=== PATIENT | female | born 1940 ===

== ENCOUNTER 2019-03-26 17:17 | Inpatient (IN) | payer MEDICARE, MEDICAID ==
[2019-03-26 17:23] VITALS: BMI 21.2
--- NOTE | 2019-03-26 18:18 | ED PDOC ---
Arrival/HPI - General Historian: [facility] - History of Present Illness Narrative History of Present Illness (Text): 03/26/19 18:12 CC: AMS, multiple ulcers HPI: 78 yo female w/ PMH hypertension, osteorarthritis, cord compression, CAD, GERD, muscle weakness, and MDD sent in by [facility] for evaluation of chronic wounds, moans, and lethargy. Patient baseline mental status unknown and not clearly mentioned in NH documentation. As per documentation, it has been recommended that patient have an amputation for poor healing feet ulcers which was refused. Patient AAOx0 currently and moans incoherent sounds. Information was collected through documentation sent through [facility]. Time/Duration: > week Symptom Onset: Gradual Symptom Course: Worsening Activities at Onset: Rest Context: Sitting <Ernesto Gresham - Last Filed: 03/26/19 19:04> <Jone Shetty - Last Filed: 03/26/19 21:07> <David Romero - Last Filed: 03/26/19 21:14> - General Chief Complaint: Altered Mental Status Time Seen by Provider: 03/26/19 17:46 Past Medical History - Provider Review Nursing Documentation Reviewed: Yes Primary Care Provider: Dalton Meek - Infectious Disease Hx of Infectious Diseases: None - Cardiac Hx Cardiac Disorders: Yes Hx Coronary Artery Disease: Yes Hx Hypertension: Yes - Pulmonary Hx Respiratory Disorders: No - Neurological Hx Neurological Disorder: Yes HX Cerebrovascular Accident: Yes - Renal Hx Renal Disorder: No - Endocrine/Metabolic Hx Endocrine Disorders: No - Hematological/Oncological Hx Blood Disorders: No - Integumentary Hx Dermatological Disorder: Yes (pressure ulcers) - Musculoskeletal/Rheumatological Hx Falls: Yes Hx Osteoarthritis: Yes - Gastrointestinal Hx Gastrointestinal Disorders: Yes Hx Gastroesophageal Reflux: Yes - Psychiatric Hx Depression: Yes Hx Substance Use: No <Ernesto Gresham - Last Filed: 03/26/19 19:04> Family/Social History Family/Social History: Unknown Family HX Smoking Status: Unknown If Ever Smoked Hx Alcohol Use: No Hx Substance Use: No <Ernesto Gresham - Last Filed: 03/26/19 19:04> Allergies/Home Meds <Ernesto Gresham - Last Filed: 03/26/19 19:04> <Jone Shetty - Last Filed: 03/26/19 21:07> <David Romero - Last Filed: 03/26/19 21:14> Allergies/Adverse Reactions: Allergies No Known Allergies Allergy (Verified 03/26/19 17:22) Home Medications: Home Meds Medication Instructions Recorded Confirmed Acetaminophen [Tylenol 325mg tab] 650 mg PO Q4H PRN 03/26/19 03/26/19 Amino Acid/Protein/Vit C/Zinc 30 ml PO BID 03/26/19 03/26/19 [Prosource Ronald Protein Liquid] Ascorbic Acid [Vitamin C] 1,000 mg PO BID 03/26/19 03/26/19 Cyclobenzaprine [Flexeril] 10 mg PO HS 03/26/19 03/26/19 Furosemide [Lasix] 20 mg PO DAILY 03/26/19 03/26/19 Losartan [Cozaar] 50 mg PO DAILY 03/26/19 03/26/19 Mirtazapine [Remeron] 15 mg PO HS 03/26/19 03/26/19 Nutritional Supplement [Ensure] 1 bottle PO BID 03/26/19 03/26/19 RX: Ammonium Lactate 1 applic TOP DAILY 03/26/19 03/26/19 [Nicky-Hydrolac] RX: Aspirin [Ecotrin] 81 mg PO DAILY 03/26/19 03/26/19 RX: Baclofen [Lioresal] 10 mg PO Q12H 03/26/19 03/26/19 RX: Banana Flakes/Tos [Banatrol 1 packet PO BID 03/26/19 03/26/19 Plus Powder Packet] RX: Ferrous Sulfate [Feosol] 325 mg PO BID 03/26/19 03/26/19 RX: Ibuprofen [Motrin Tab] 400 mg PO Q6H PRN 03/26/19 03/26/19 RX: traMADol [Ultram] 50 mg PO Q6H PRN 03/26/19 03/26/19 Ubidecarenone [Coq10] 50 mg PO DAILY 03/26/19 03/26/19 Review of Systems - Review of Systems Systems not reviewed;Unavailable: Altered Mental Status <Ernesto Gresham - Last Filed: 03/26/19 19:04> Physical Exam Vital Signs Reviewed: No - Systems Exam Head: Present: Atraumatic, Normocephalic. No: Tenderness, Contusion, Swelling, Ecchymosis Extroacular Muscles: Present: EOMI. No: Gaze Palsy Conjunctiva: Present: Normal Respiratory/Chest: Present: Clear to Auscultation, Good Air Exchange. No: Respiratory Distress, Accessory Muscle Use Cardiovascular: Present: Regular Rate and Rhythm, Normal S1, S2. No: Murmurs, Irregular Rhythm Abdomen: Present: Normal Bowel Sounds. No: Tenderness, Distention, Peritoneal Signs Upper Extremity: Present: Normal Inspection. No: Cyanosis, Edema Lower Extremity: Present: Other (right foot ulcer with dressing in place). No: Edema, CALF TENDERNESS, Cyanosis Skin: Present: Warm (multiple skin ulcers: 1 present on posterior thorax with wound vac, multiple sacral ulcers measuring different sizes (4x4 cm in sacrum, 2 x 2 cm open ulcer above anus, 2x2 cm on medial thigh)), Normal Color, Other Psychiatric: Present: Alert, Oriented x 3, Normal Insight, Normal Concentration <Ernesto Gresham - Last Filed: 03/26/19 19:04> Vital Signs Temp Pulse Resp BP Pulse Ox 03/26/19 20:17 66 18 103/74 100 03/26/19 17:30 98.1 F 65 17 122/71 100 <David Romero - Last Filed: 03/26/19 21:14> Medical Decision Making ED Course and Treatment: 03/26/19 18:47 Impression Plan -CBC/CMP -Mag/Phos -EKG -VBG Prior Visits no prior visits Progress Notes Pending Callback from Dr. Meek ([id number]) 03/26/19 18:49 03/26/19 19:04 <Ernesto Gresham - Last Filed: 03/26/19 19:04> ED Course and Treatment: 03/26/19 19:58 EKG: NSR, low voltage 03/26/19 21:[address] Meek service Pt seen, examined, assessment and plan discussed with Dr Nick Shetty PGY1 <Jone Shetty - Last Filed: 03/26/19 21:07> ED Course and Treatment: 03/26/19 20:52 Labs reviewed with leukocytosis of 27, thrombocytosis of 1,000 and hyperkalemia of 5.5. Spoke to Dr. Meek(PCP) who requests patient to be evaluated by ICU team. 03/26/19 21:[address] Bloom(house staff) who states patient may go to telemetry floor. - Lab Interpretations Lab Results: pO2 39 mm/Hg (30-55) 03/26/19 19:30 VBG pH 7.41 (7.32-7.43) 03/26/19 19:30 VBG pCO2 37.0 (40-60) L 03/26/19 19:30 VBG HCO3 23.5 mmol/l (21-28) 03/26/19 19:30 VBG Total CO2 24.6 mmol.L (22-28) 03/26/19 19:30 VBG O2 Sat (Calc) 74.9 % (40-65) H 03/26/19 19:30 VBG Base Excess -0.8 mmol/L (0.0-2.0) L 03/26/19 19:30 VBG Potassium 7.0 mmol/L (3.6-5.2) H* 03/26/19 19:30 Sodium 129.0 mmol/L (132-148) L 03/26/19 19:30 Chloride 98.0 mmol/L (98-107) 03/26/19 19:30 Glucose 89 mg/dl (65-105) 03/26/19 19:30 Lactate 2.3 mmol/L (0.7-2.1) H 03/26/19 19:30 FiO2 21.0 % 03/26/19 19:30 Crit Value Called To Johanna hernadez rn 03/26/19 19:30 Crit Value Called By Martha 03/26/19 19:30 Blood Gas Notified Time 195403/26/19 19:30 Total Bilirubin 1.0 mg/dL (0.2-1.3) 03/26/19 19:30 AST 76 U/L (14-36) H 03/26/19 19:30 ALT 20 U/L (7-56) 03/26/19 19:30 Alkaline Phosphatase 142 U/L (38-126) H 03/26/19 19:30 Total Protein 7.4 g/dL (5.8-8.3) 03/26/19 19:30 Albumin 3.3 g/dL (3.0-4.8) 03/26/19 19:30 Globulin 4.1 gm/dL 03/26/19 19:30 Albumin/Globulin Ratio 0.8 (1.1-1.8) L 03/26/19 19:30 03/26/19 19:30 03/26/19 19:30 Lab Results 03/26/19 19:30: pO2 39, VBG pH 7.41, VBG pCO2 37.0 L, VBG HCO3 23.5, VBG Total CO2 24.6, VBG O2 Sat (Calc) 74.9 H, VBG Base Excess -0.8 L, VBG Potassium 7.0 H* , Sodium 129.0 L, Chloride 98.0, Glucose 89, Lactate 2.3 H, FiO2 21.0, Crit Value Called To Johanna hernadez rn, Crit Value Called By Martha, Blood Gas Notified Time 1954, Venous Blood Potassium 7.0 H* 03/26/19 19:30: Sodium 135, Chloride 95 L, Potassium 5.5 H, Carbon Dioxide 24, Anion Gap 22 H, BUN 65 H, Creatinine 2.1 H, Est GFR ( Amer) 27, Est GFR (Non-Af Amer) 23, Random Glucose 74, Calcium 9.1, Phosphorus 5.5 H, Magnesium 2.4 H, Total Bilirubin 1.0, AST 76 H, ALT 20, Alkaline Phosphatase 142 H, Total Protein 7.4, Albumin 3.3, Globulin 4.1, Albumin/Globulin Ratio 0.8 L 03/26/19 19:30: WBC 27.0 H*, RBC 3.68, Hgb 9.0 L, Hct 28.9 L, MCV 78.5 L, MCH 24.5 L, MCHC 31.1, RDW 16.3 H, Plt Count 1039 H*, MPV 8.7, Neut % (Auto) 91.9 H, Lymph % (Auto) 4.1 L, [place] % (Auto) 3.9, Eos % (Auto) 0.0 L, Baso % (Auto) 0.1, Lymph # (Auto) 1.1 L, [place] # (Auto) 1.1 H, Eos # (Auto) 0.0, Baso # (Auto) 0.02, Absolute Neuts (auto) 24.85 H, Neutrophils % (Manual) 91 H, Lymphocytes % (Manual) 5 L, Monocytes % (Manual) 4, Platelet Evaluation High 03/26/19 17:59: POC Glucose (mg/dL) 128 H I have reviewed the lab results: Yes - Medication Orders Current Medication Orders: Sodium Chloride (Sodium Chloride 0.9%) 1,000 mls @ 999 mls/hr IV .Q1H1M STA Stop: 03/26/19 21:15 Vancomycin HCl (Vancomycin 1gm) 1 gm in 250 mls @ 167 mls/hr IVPB STAT STA; Protocol Stop: 03/26/19 21:45 Discontinued Medications Albuterol Sulfate (Albuterol 0.083% Inhal Janis (2.5 Mg/3 Ml) Ud) 2.5 mg INH STAT STA Stop: 03/26/19 20:47 Dextrose (Dextrose 50% Inj) 50 ml IVP STAT STA Stop: 03/26/19 20:48 Piperacillin Sod/Tazobactam Sod (Zosyn 4.5 Gm In Ns 100ml) 4.5 gm in 100 mls @ 200 mls/hr IVPB STAT STA; Protocol Stop: 03/26/19 20:45 Insulin Human Regular (Humulin R) 10 units IV STAT STA Stop: 03/26/19 20:47 Sodium Bicarbonate (Sodium Bicarbonate 8.4% (50 Meq) Syringe) 50 meq IVP ONCE ONE Stop: 03/26/19 20:48 Sodium Polystyrene Sulfonate (Kayexalate) 15 gm PO ONCE ONE Stop: 03/26/19 20:48 <David Romero - Last Filed: 03/26/19 21:14> Disposition/Present on Arrival - Present on Arrival History of DVT/PE: No History of Uncontrolled Diabetes: No Urinary Catheter: No History of Decub. Ulcer: No History Surgical Site Infection Following: None <Ernesto Gresham - Last Filed: 03/26/19 19:04> - Present on Arrival Any Indicators Present on Arrival: No History of DVT/PE: No History of Uncontrolled Diabetes: No Urinary Catheter: No History of Decub. Ulcer: No - Disposition Have Diagnosis and Disposition been Completed?: Yes Disposition Time: 21:07 <Jone Shetty - Last Filed: 03/26/19 21:07> <David Romero - Last Filed: 03/26/19 21:14> - Disposition Diagnosis: Sepsis Patient Problems: Current Active Problems Problem Status Onset Sepsis Acute Condition: FAIR
[2019-03-26 19:49] LABS: BASO # 0.02 K/mm3 (0.0-2.0); BASO % 0.1 % (0.0-3.0); LYMPH # 1.1 (1.2-3.4); LYMPH % 4.1 % (22.0-35.0); MEAN CELL VOLUME 78.5 fl (80.0-105.0); MEAN CORPUSCULAR HEMOGLOBIN 24.5 pg (25.0-35.0); MEAN CORPUSCULAR HGB CONC 31.1 g/dl (31.0-37.0); MEAN PLATELET VOLUME 8.7 fl (7.0-11.0); MONO # 1.1 (0.1-0.6); MONO % 3.9 % (1.0-6.0); RBC 3.68 10^6/uL (3.5-6.1); RED CELL DISTRIBUTION WIDTH 16.3 % (11.5-14.5)
[2019-03-26 19:55] LABS: PLATELET COUNT 1039 10^3/uL (120.0-450.0)
[2019-03-26 19:59] LABS: VENOUS BLOOD GAS BASE EXCESS -0.8 mmol/L (0.0-2.0); VENOUS BLOOD GAS PO2 39 mm/Hg (30-55); VENOUS BLOOD PH 7.41 (7.32-7.43)
[2019-03-26 20:05] LABS: ALB/GLOB RATIO 0.8 (1.1-1.8); ALBUMIN 3.3 g/dL (3.0-4.8); CALCIUM 9.1 mg/dL (8.4-10.5)
[2019-03-26] MEDS ORDERED: Sodium Chloride 0.9% 1,000 ML IV STA ×2 (20:15→21:35)
[2019-03-26] MEDS ORDERED: Vancomycin 1gm in NS 250ml 1 GM/250 ML BAG IVPB STA (20:16)
[2019-03-26] MEDS ORDERED: Piperacill/Tazo 4.5gm in NS 4.5 GM/100 ML BAG IVPB STA (20:16)
[2019-03-26 20:24] LABS: LYMPHOCYTE 5 % (22.0-35.0); NEUTROPHIL 91 % (50.0-70.0)
[2019-03-26 20:25] LABS: MONOCYTE 4 % (1.0-6.0); PLATELET ESTIMATE HIGH (NORMAL)
[2019-03-26] MEDS ORDERED: Albuterol 0.083% Inhal Sol (2.5 mg/3 mL) UD INH STA (20:46)
[2019-03-26] MEDS ORDERED: Insulin Regular 1 UNITS/0.01 ML ML IV STA (20:46)
[2019-03-26] MEDS ORDERED: Sodium Bicarbonate (8.4%) 50 Meq Syringe IVP ONE ×2 (20:47→21:47)
[2019-03-26] MEDS ORDERED: Dextrose 50% SYRINGE Inj (50 ml) IVP STA (20:47)
--- NOTE | 2019-03-26 21:35 | CP.PCM.CON ---
History of Present Illness - History of Present Illness History of Present Illness: SURGERY CONSULT FOR DR. MELCHOR Reason: Mid back abscess, multiple ulcers 78F presents to the ED after being sent here by Dr. Meek. Patient currently has altered mental status, she is from a nursing facility and has nobody bedside to discuss patient condition. Patent came with a chart which was reviewed. She has a history of hypertension, coronary artery disease, GERD, and MDD. Patient has multiple ulcers including in the left lateral malleolus, the sacral region, the lower back, and mid back abscess currently draining purulent material. Past Patient History - Infectious Disease Hx of Infectious Diseases: None - Past Social History Smoking Status: Unknown If Ever Smoked - CARDIAC Hx Cardiac Disorders: Yes Hx Hypertension: Yes - PULMONARY Hx Respiratory Disorders: No - NEUROLOGICAL Hx Neurological Disorder: Yes HX Cerebrovascular Accident: Yes - RENAL Hx Chronic Kidney Disease: No - ENDOCRINE/METABOLIC Hx Endocrine Disorders: No - HEMATOLOGICAL/ONCOLOGICAL Hx Blood Disorders: No - INTEGUMENTARY Hx Dermatological Problems: Yes (pressure ulcers) - MUSCULOSKELETAL/RHEUMATOLOGICAL Hx Falls: Yes Hx Osteoarthritis: Yes - GASTROINTESTINAL Hx Gastrointestinal Disorders: Yes Hx Gastroesophageal Reflux: Yes - PSYCHIATRIC Hx Depression: Yes Hx Substance Use: No Meds Allergies/Adverse Reactions: Allergies Allergy/AdvReac Type Severity Reaction Status Date / Time No Known Allergies Allergy Verified 03/26/19 17:22 - Medications Medications: Current Medications Vancomycin HCl (Vancomycin 1gm) 1 gm in 250 mls @ 167 mls/hr IVPB STAT STA; Protocol Stop: 03/26/19 21:45 Physical Exam - Constitutional Appears: Older Than Stated Age, Confused, Chronically Ill - ENT Exam ENT Exam: Mucous Membranes Dry - Respiratory Exam Respiratory Exam: NORMAL BREATHING PATTERN - Cardiovascular Exam Cardiovascular Exam: REGULAR RHYTHM, +S1, +S2 - GI/Abdominal Exam GI & Abdominal Exam: Soft. absent: Distended, Firm, Guarding, Rebound, Rigid, Tenderness - Extremities Exam Additional comments: left lateral malleolus dry necrotic ulcer sacral decubitus, no necrotic tissue, no drainage Mid back abscess, purulent drainage - Back Exam Additional comments: mid back abscess draining purulent material - Skin Skin Exam: Dry, Normal Color, Warm Results - Vital Signs Recent Vital Signs: Last Vital Signs Temp 98.1 F 03/26/19 17:30 Pulse 66 03/26/19 20:17 Resp 18 03/26/19 20:17 BP 103/74 03/26/19 20:17 Pulse Ox 100 03/26/19 20:17 - Labs Result Diagrams: 03/26/19 19:30 03/26/19 19:30 Labs: Laboratory Results - last 24 hr 03/26/19 03/26/19 03/26/19 17:59 19:30 19:30 WBC 27.0 H* RBC 3.68 Hgb 9.0 L Hct 28.9 L MCV 78.5 L MCH 24.5 L MCHC 31.1 RDW 16.3 H Plt Count 1039 H* MPV 8.7 Neut % (Auto) 91.9 H Lymph % (Auto) 4.1 L [place] % (Auto) 3.9 Eos % (Auto) 0.0 L Baso % (Auto) 0.1 Lymph # (Auto) 1.1 L [place] # (Auto) 1.1 H Eos # (Auto) 0.0 Baso # (Auto) 0.02 Absolute Neuts (auto) 24.85 H Neutrophils % (Manual) 91 H Lymphocytes % (Manual) 5 L Monocytes % (Manual) 4 Platelet Evaluation High pO2 VBG pH VBG pCO2 VBG HCO3 VBG Total CO2 VBG O2 Sat (Calc) VBG Base Excess VBG Potassium Sodium 135 Chloride 95 L Glucose Lactate FiO2 Crit Value Called To Crit Value Called By Blood Gas Notified Time Potassium 5.5 H Carbon Dioxide 24 Anion Gap 22 H BUN 65 H Creatinine 2.1 H Est GFR ( Amer) 27 Est GFR (Non-Af Amer) 23 POC Glucose (mg/dL) 128 H Random Glucose 74 Calcium 9.1 Phosphorus 5.5 H Magnesium 2.4 H Total Bilirubin 1.0 AST 76 H ALT 20 Alkaline Phosphatase 142 H Total Protein 7.4 Albumin 3.3 Globulin 4.1 Albumin/Globulin Ratio 0.8 L Venous Blood Potassium 03/26/19 19:30 WBC RBC Hgb Hct MCV MCH MCHC RDW Plt Count MPV Neut % (Auto) Lymph % (Auto) [place] % (Auto) Eos % (Auto) Baso % (Auto) Lymph # (Auto) [place] # (Auto) Eos # (Auto) Baso # (Auto) Absolute Neuts (auto) Neutrophils % (Manual) Lymphocytes % (Manual) Monocytes % (Manual) Platelet Evaluation pO2 39 VBG pH 7.41 VBG pCO2 37.0 L VBG HCO3 23.5 VBG Total CO2 24.6 VBG O2 Sat (Calc) 74.9 H VBG Base Excess -0.8 L VBG Potassium 7.0 H* Sodium 129.0 L Chloride 98.0 Glucose 89 Lactate 2.3 H FiO2 21.0 Crit Value Called To Johanna hernadez rn Crit Value Called By Martha Blood Gas Notified Time 1954 Potassium Carbon Dioxide Anion Gap BUN Creatinine Est GFR ( Amer) Est GFR (Non-Af Amer) POC Glucose (mg/dL) Random Glucose Calcium Phosphorus Magnesium Total Bilirubin AST ALT Alkaline Phosphatase Total Protein Albumin Globulin Albumin/Globulin Ratio Venous Blood Potassium 7.0 H* Assessment & Plan - Assessment and Plan (Free Text) Assessment: 78F presents to hospital with septic shock, of unknown etiology and multiple wounds Plan: - NPO - Aggressive resuscitation - Broad spectrum antibiotics - Pain control - Martinez-culture - Blood/Urine culture/UA - Chest X-ray - ICU evaluation Further recs will discuss with Dr. Vin Craig, PGY3
--- NOTE | 2019-03-26 21:39 | CP.PCM.CON ---
<RussYanet - Last Filed: 03/26/19 22:38> History of Present Illness - History of Present Illness History of Present Illness: Yanet Solano PGY-2: ICU Consult Note for Dr. Bloom 78 year female with dementia, bed-bound with leg contractures who presented to [facility] for altered mental status. Important to note, patient is from a senior living and has multiple, varying depth pressure ulcers on back, right lateral ankle, gluteal area. In the ED, patient was found to have a WBC of 27,000. ICU was consulted for possible sepsis. Patient is afebrile, hemodynamically her blood pressure is low but she is not tachycardic. She is extremely frail. HPI and ROS are limited secondary to no documentation from NH and patient being unable to speak at baseline. PMH: dementia, bed-bound, multiple pressure ulcers PSH: Unknown Allergies: Denies Social: Unknown PMD: Dr. Meek Review of Systems - Review of Systems All systems: reviewed and no additional remarkable complaints except (as per HPI) Past Patient History - Infectious Disease Hx of Infectious Diseases: None - Past Social History Smoking Status: Unknown If Ever Smoked - CARDIAC Hx Cardiac Disorders: Yes Hx Hypertension: Yes - PULMONARY Hx Respiratory Disorders: No - NEUROLOGICAL Hx Neurological Disorder: Yes HX Cerebrovascular Accident: Yes - RENAL Hx Chronic Kidney Disease: No - ENDOCRINE/METABOLIC Hx Endocrine Disorders: No - HEMATOLOGICAL/ONCOLOGICAL Hx Blood Disorders: No - INTEGUMENTARY Hx Dermatological Problems: Yes (pressure ulcers) - MUSCULOSKELETAL/RHEUMATOLOGICAL Hx Falls: Yes Hx Osteoarthritis: Yes - GASTROINTESTINAL Hx Gastrointestinal Disorders: Yes Hx Gastroesophageal Reflux: Yes - PSYCHIATRIC Hx Depression: Yes Hx Substance Use: No Meds Allergies/Adverse Reactions: Allergies Allergy/AdvReac Type Severity Reaction Status Date / Time No Known Allergies Allergy Verified 03/26/19 17:22 - Medications Medications: Current Medications Vancomycin HCl (Vancomycin 1gm) 1 gm in 250 mls @ 167 mls/hr IVPB STAT STA; Protocol Stop: 03/26/19 21:45 Sodium Chloride (Sodium Chloride 0.9%) 1,000 mls @ 999 mls/hr IV .Q1H1M STA Stop: 03/26/19 22:35 Physical Exam - Constitutional Appears: Non-toxic, No Acute Distress, Older Than Stated Age, Chronically Ill - Head Exam Head Exam: ATRAUMATIC, NORMOCEPHALIC - Eye Exam Eye Exam: EOMI, Normal appearance - ENT Exam ENT Exam: Mucous Membranes Dry - Neck Exam Neck exam: Positive for: Normal Inspection - Respiratory Exam Respiratory Exam: Clear to Auscultation Bilateral, NORMAL BREATHING PATTERN. absent: Accessory Muscle Use - Cardiovascular Exam Cardiovascular Exam: RRR, +S1, +S2 - GI/Abdominal Exam GI & Abdominal Exam: Normal Bowel Sounds, Soft - Back Exam Additional comments: pressure ulcers - Psychiatric Exam Psychiatric exam: Flat Affect - Skin Additional comments: multiple pressure ulcers, with purulent drainage coming out from right mid-back Results - Vital Signs Recent Vital Signs: Last Vital Signs Temp 98.1 F 03/26/19 17:30 Pulse 66 03/26/19 20:17 Resp 18 03/26/19 20:17 BP 103/74 03/26/19 20:17 Pulse Ox 100 03/26/19 20:17 - Labs Result Diagrams: 03/26/19 19:30 03/26/19 19:30 Labs: Laboratory Results - last 24 hr 03/26/19 03/26/19 03/26/19 17:59 19:30 19:30 WBC 27.0 H* RBC 3.68 Hgb 9.0 L Hct 28.9 L MCV 78.5 L MCH 24.5 L MCHC 31.1 RDW 16.3 H Plt Count 1039 H* MPV 8.7 Neut % (Auto) 91.9 H Lymph % (Auto) 4.1 L [place] % (Auto) 3.9 Eos % (Auto) 0.0 L Baso % (Auto) 0.1 Lymph # (Auto) 1.1 L [place] # (Auto) 1.1 H Eos # (Auto) 0.0 Baso # (Auto) 0.02 Absolute Neuts (auto) 24.85 H Neutrophils % (Manual) 91 H Lymphocytes % (Manual) 5 L Monocytes % (Manual) 4 Platelet Evaluation High pO2 VBG pH VBG pCO2 VBG HCO3 VBG Total CO2 VBG O2 Sat (Calc) VBG Base Excess VBG Potassium Sodium 135 Chloride 95 L Glucose Lactate FiO2 Crit Value Called To Crit Value Called By Blood Gas Notified Time Potassium 5.5 H Carbon Dioxide 24 Anion Gap 22 H BUN 65 H Creatinine 2.1 H Est GFR ( Amer) 27 Est GFR (Non-Af Amer) 23 POC Glucose (mg/dL) 128 H Random Glucose 74 Calcium 9.1 Phosphorus 5.5 H Magnesium 2.4 H Total Bilirubin 1.0 AST 76 H ALT 20 Alkaline Phosphatase 142 H Total Protein 7.4 Albumin 3.3 Globulin 4.1 Albumin/Globulin Ratio 0.8 L Venous Blood Potassium 03/26/19 19:30 WBC RBC Hgb Hct MCV MCH MCHC RDW Plt Count MPV Neut % (Auto) Lymph % (Auto) [place] % (Auto) Eos % (Auto) Baso % (Auto) Lymph # (Auto) [place] # (Auto) Eos # (Auto) Baso # (Auto) Absolute Neuts (auto) Neutrophils % (Manual) Lymphocytes % (Manual) Monocytes % (Manual) Platelet Evaluation pO2 39 VBG pH 7.41 VBG pCO2 37.0 L VBG HCO3 23.5 VBG Total CO2 24.6 VBG O2 Sat (Calc) 74.9 H VBG Base Excess -0.8 L VBG Potassium 7.0 H* Sodium 129.0 L Chloride 98.0 Glucose 89 Lactate 2.3 H FiO2 21.0 Crit Value Called To Johanna hernadez rn Crit Value Called By Martha Blood Gas Notified Time 1954 Potassium Carbon Dioxide Anion Gap BUN Creatinine Est GFR ( Amer) Est GFR (Non-Af Amer) POC Glucose (mg/dL) Random Glucose Calcium Phosphorus Magnesium Total Bilirubin AST ALT Alkaline Phosphatase Total Protein Albumin Globulin Albumin/Globulin Ratio Venous Blood Potassium 7.0 H* Assessment & Plan - Assessment and Plan (Free Text) Assessment: 78 year old female with a past medical history of dementia, non-verbal at baseline, pressure ulcers, bed-bound status with leg contracture who was sent to [facility] for altered mental status and found to have a leukocytosis. ICU was consulted for possible sepsis. Patient is not tachycardic and with adequate fluid resuscitation blood pressure should normalize. We will administer 2 L of NS and follow up blood pressure. We recommend broad spectrum antibiotics, blood, urine cultures, wound cultures, chest X-ray, urinalysis, ID and surgical consult at this time. On a subsequent visit, patient MAP was above 60 mmHg after crystalloid fluid resuscitation. No need for ICU admission at this time. Case was reviewed and discussed with attending physician, Dr. Bloom <Bon Bloom - Last Filed: 03/27/19 20:57> Meds - Medications Medications: Current Medications Acetaminophen (Tylenol 325 Mg Supp) 325 mg RC Q6H PRN PRN Reason: Temperature Last Admin: 03/27/19 09:33 Dose: 325 mg Collagenase (Santyl) 0 gm TOP DAILY FRANKLYN Last Admin: 03/27/19 14:31 Dose: 1 applic Sodium Chloride (Sodium Chloride 0.9%) 1,000 mls @ 100 mls/hr IV .Q10H FRANKLYN Last Admin: 03/27/19 14:32 Dose: 100 mls/hr Vancomycin HCl (Vancomycin 500mg In Ns) 500 mg in 100 mls @ 200 mls/hr IVPB Q12 FRANKLYN; Protocol Last Admin: 03/27/19 09:32 Dose: 200 mls/hr Meropenem 250 mg/ Sodium (Chloride) 100 mls @ 100 mls/hr IVPB Q12H FRANKLYN; Protocol Stop: 04/04/19 14:01 Last Admin: 03/27/19 14:31 Dose: 100 mls/hr Lorazepam (Ativan) 0.5 mg IVP Q6H PRN; Protocol PRN Reason: Anxiety Last Admin: 03/27/19 17:19 Dose: 0.5 mg Results - Vital Signs Recent Vital Signs: Last Vital Signs Temp 96.3 F L 03/27/19 16:52 Pulse 77 03/27/19 18:00 Resp 18 03/27/19 16:52 BP 90/58 L 03/27/19 16:52 Pulse Ox 100 03/27/19 16:52 - Labs Result Diagrams: 03/27/19 12:50 03/27/19 08:55 Labs: Laboratory Results - last 24 hr 03/26/19 03/26/19 03/26/19 21:33 22:34 22:58 WBC RBC Hgb Hct MCV MCH MCHC RDW Plt Count MPV Neut % (Auto) Lymph % (Auto) [place] % (Auto) Eos % (Auto) Baso % (Auto) Lymph # (Auto) [place] # (Auto) Eos # (Auto) Baso # (Auto) Absolute Neuts (auto) pCO2 pO2 HCO3 ABG pH ABG Total CO2 ABG O2 Saturation ABG O2 Content ABG Base Excess ABG Hemoglobin ABG Carboxyhemoglobin POC ABG HHb (Measured) ABG Methemoglobin ABG O2 Capacity VBG pH VBG pCO2 VBG HCO3 VBG Total CO2 VBG O2 Sat (Calc) VBG Base Excess VBG Potassium Hgb O2 Saturation Glucose Lactate FiO2 Crit Value Called To Crit Value Called By Blood Gas Notified Time Sodium 134 Potassium 4.8 Chloride 100 Carbon Dioxide 21 Anion Gap 18 BUN 61 H Creatinine 2.0 H Est GFR ( Amer) 29 Est GFR (Non-Af Amer) 24 POC Glucose (mg/dL) 97 Random Glucose 118 H Lactic Acid Uric Acid Calcium 7.9 L Iron TIBC % Saturation Ferritin Total Bilirubin AST ALT Alkaline Phosphatase Ammonia Lactate Dehydrogenase 368 Total Creatine Kinase 428 H CK-MB (CK-2) 5.4 H CK-MB (CK-2) % 1.3 L Troponin I < 0.01 Total Protein Albumin Globulin Albumin/Globulin Ratio Vitamin B12 Venous Blood Potassium Urine Color Urine Appearance Urine pH Ur Specific [place] Urine Protein Urine Glucose (UA) Urine Ketones Urine Blood Urine Nitrate Urine Bilirubin Urine Urobilinogen Ur Leukocyte Esterase Urine RBC Urine WBC Ur Epithelial Cells Urine Bacteria Blood Type Blood Type Confirm Antibody Screen Crossmatch BBK History Checked 03/26/19 03/26/19 03/27/19 23:01 23:05 01:25 WBC RBC Hgb Hct MCV MCH MCHC RDW Plt Count MPV Neut % (Auto) Lymph % (Auto) [place] % (Auto) Eos % (Auto) Baso % (Auto) Lymph # (Auto) [place] # (Auto) Eos # (Auto) Baso # (Auto) Absolute Neuts (auto) pCO2 pO2 109 H HCO3 ABG pH ABG Total CO2 ABG O2 Saturation ABG O2 Content ABG Base Excess ABG Hemoglobin ABG Carboxyhemoglobin POC ABG HHb (Measured) ABG Methemoglobin ABG O2 Capacity VBG pH 7.34 VBG pCO2 41.0 VBG HCO3 22.1 VBG Total CO2 23.4 VBG O2 Sat (Calc) 99.0 H VBG Base Excess -3.5 L VBG Potassium 5.5 H Hgb O2 Saturation Glucose 119 H Lactate 3.5 H FiO2 21.0 Crit Value Called To Elizabeth zimmer Crit Value Called By Atc Blood Gas Notified Time 2310 Sodium 133.0 Potassium Chloride 101.0 Carbon Dioxide Anion Gap BUN Creatinine Est GFR ( Amer) Est GFR (Non-Af Amer) POC Glucose (mg/dL) 93 Random Glucose Lactic Acid Uric Acid Calcium Iron TIBC % Saturation Ferritin Total Bilirubin AST ALT Alkaline Phosphatase Ammonia Lactate Dehydrogenase Total Creatine Kinase CK-MB (CK-2) CK-MB (CK-2) % Troponin I Total Protein Albumin Globulin Albumin/Globulin Ratio Vitamin B12 Venous Blood Potassium 5.5 H Urine Color Yellow Urine Appearance Cloudy Urine pH 6.5 Ur Specific [place] 1.015 Urine Protein 100 H Urine Glucose (UA) Negative Urine Ketones Negative Urine Blood Moderate H Urine Nitrate Negative Urine Bilirubin Negative Urine Urobilinogen 1.0 H Ur Leukocyte Esterase Large H Urine RBC 2 - 5 H Urine WBC 20 - 25 H Ur Epithelial Cells 1 - 3 Urine Bacteria Small Blood Type Blood Type Confirm Antibody Screen Crossmatch BBK History Checked 03/27/19 03/27/19 03/27/19 07:33 08:10 08:10 WBC RBC Hgb Hct MCV MCH MCHC RDW Plt Count MPV Neut % (Auto) Lymph % (Auto) [place] % (Auto) Eos % (Auto) Baso % (Auto) Lymph # (Auto) [place] # (Auto) Eos # (Auto) Baso # (Auto) Absolute Neuts (auto) pCO2 pO2 HCO3 ABG pH ABG Total CO2 ABG O2 Saturation ABG O2 Content ABG Base Excess ABG Hemoglobin ABG Carboxyhemoglobin POC ABG HHb (Measured) ABG Methemoglobin ABG O2 Capacity VBG pH VBG pCO2 VBG HCO3 VBG Total CO2 VBG O2 Sat (Calc) VBG Base Excess VBG Potassium Hgb O2 Saturation Glucose Lactate FiO2 Crit Value Called To Crit Value Called By Blood Gas Notified Time Sodium Potassium Chloride Carbon Dioxide Anion Gap BUN Creatinine Est GFR ( Amer) Est GFR (Non-Af Amer) POC Glucose (mg/dL) 103 Random Glucose Lactic Acid Uric Acid Calcium Iron 13 L TIBC 146 L % Saturation 9 L Ferritin 876.0 Total Bilirubin AST ALT Alkaline Phosphatase Ammonia Lactate Dehydrogenase Total Creatine Kinase CK-MB (CK-2) CK-MB (CK-2) % Troponin I Total Protein Albumin Globulin Albumin/Globulin Ratio Vitamin B12 326 Venous Blood Potassium Urine Color Urine Appearance Urine pH Ur Specific [place] Urine Protein Urine Glucose (UA) Urine Ketones Urine Blood Urine Nitrate Urine Bilirubin Urine Urobilinogen Ur Leukocyte Esterase Urine RBC Urine WBC Ur Epithelial Cells Urine Bacteria Blood Type Blood Type Confirm Antibody Screen Crossmatch BBK History Checked 03/27/19 03/27/19 03/27/19 08:55 11:39 12:15 WBC RBC Hgb Hct MCV MCH MCHC RDW Plt Count MPV Neut % (Auto) Lymph % (Auto) [place] % (Auto) Eos % (Auto) Baso % (Auto) Lymph # (Auto) [place] # (Auto) Eos # (Auto) Baso # (Auto) Absolute Neuts (auto) pCO2 pO2 HCO3 ABG pH ABG Total CO2 ABG O2 Saturation ABG O2 Content ABG Base Excess ABG Hemoglobin ABG Carboxyhemoglobin POC ABG HHb (Measured) ABG Methemoglobin ABG O2 Capacity VBG pH VBG pCO2 VBG HCO3 VBG Total CO2 VBG O2 Sat (Calc) VBG Base Excess VBG Potassium Hgb O2 Saturation Glucose Lactate FiO2 Crit Value Called To Crit Value Called By Blood Gas Notified Time Sodium 141 Potassium 4.0 Chloride 107 Carbon Dioxide 25 Anion Gap 13 BUN 54 H Creatinine 1.9 H Est GFR ( Amer) 31 Est GFR (Non-Af Amer) 25 POC Glucose (mg/dL) 80 Random Glucose 74 Lactic Acid Uric Acid Calcium 8.1 L Iron TIBC % Saturation Ferritin Total Bilirubin 0.6 AST 45 H D ALT 17 Alkaline Phosphatase 129 H Ammonia 15 Lactate Dehydrogenase Total Creatine Kinase CK-MB (CK-2) CK-MB (CK-2) % Troponin I Total Protein 6.1 Albumin 2.6 L Globulin 3.5 Albumin/Globulin Ratio 0.7 L Vitamin B12 Venous Blood Potassium Urine Color Urine Appearance Urine pH Ur Specific [place] Urine Protein Urine Glucose (UA) Urine Ketones Urine Blood Urine Nitrate Urine Bilirubin Urine Urobilinogen Ur Leukocyte Esterase Urine RBC Urine WBC Ur Epithelial Cells Urine Bacteria Blood Type Blood Type Confirm Antibody Screen Crossmatch BBK History Checked 03/27/19 03/27/19 03/27/19 12:15 12:20 12:50 WBC 24.2 H RBC 2.96 L Hgb 7.1 L Hct 23.4 L MCV 79.1 L MCH 24.0 L MCHC 30.3 L RDW 16.3 H Plt Count 693 H MPV 8.0 Neut % (Auto) 93.5 H Lymph % (Auto) 2.7 L [place] % (Auto) 3.8 Eos % (Auto) 0.0 L Baso % (Auto) 0.0 Lymph # (Auto) 0.7 L [place] # (Auto) 0.9 H Eos # (Auto) 0.0 Baso # (Auto) 0.01 Absolute Neuts (auto) 22.67 H pCO2 32 L pO2 146.0 H HCO3 20.8 L ABG pH 7.42 ABG Total CO2 21.8 L ABG O2 Saturation 99.3 H ABG O2 Content 12.3 L ABG Base Excess -3.2 L ABG Hemoglobin 8.8 L ABG Carboxyhemoglobin 1.4 POC ABG HHb (Measured) 0.7 ABG Methemoglobin 1.5 ABG O2 Capacity 12.4 L VBG pH VBG pCO2 VBG HCO3 VBG Total CO2 VBG O2 Sat (Calc) VBG Base Excess VBG Potassium Hgb O2 Saturation 96.4 Glucose Lactate FiO2 28.0 Crit Value Called To Crit Value Called By Blood Gas Notified Time Sodium Potassium Chloride Carbon Dioxide Anion Gap BUN Creatinine Est GFR ( Amer) Est GFR (Non-Af Amer) POC Glucose (mg/dL) Random Glucose Lactic Acid 1.2 Uric Acid Calcium Iron TIBC % Saturation Ferritin Total Bilirubin AST ALT Alkaline Phosphatase Ammonia Lactate Dehydrogenase Total Creatine Kinase CK-MB (CK-2) CK-MB (CK-2) % Troponin I Total Protein Albumin Globulin Albumin/Globulin Ratio Vitamin B12 Venous Blood Potassium Urine Color Urine Appearance Urine pH Ur Specific [place] Urine Protein Urine Glucose (UA) Urine Ketones Urine Blood Urine Nitrate Urine Bilirubin Urine Urobilinogen Ur Leukocyte Esterase Urine RBC Urine WBC Ur Epithelial Cells Urine Bacteria Blood Type Blood Type Confirm Antibody Screen Crossmatch BBK History Checked 03/27/19 03/27/19 03/27/19 12:50 16:09 16:30 WBC RBC Hgb Hct MCV MCH MCHC RDW Plt Count MPV Neut % (Auto) Lymph % (Auto) [place] % (Auto) Eos % (Auto) Baso % (Auto) Lymph # (Auto) [place] # (Auto) Eos # (Auto) Baso # (Auto) Absolute Neuts (auto) pCO2 pO2 HCO3 ABG pH ABG Total CO2 ABG O2 Saturation ABG O2 Content ABG Base Excess ABG Hemoglobin ABG Carboxyhemoglobin POC ABG HHb (Measured) ABG Methemoglobin ABG O2 Capacity VBG pH VBG pCO2 VBG HCO3 VBG Total CO2 VBG O2 Sat (Calc) VBG Base Excess VBG Potassium Hgb O2 Saturation Glucose Lactate FiO2 Crit Value Called To Crit Value Called By Blood Gas Notified Time Sodium Potassium Chloride Carbon Dioxide Anion Gap BUN Creatinine Est GFR ( Amer) Est GFR (Non-Af Amer) POC Glucose (mg/dL) 85 Random Glucose Lactic Acid Uric Acid 7.5 H Calcium Iron TIBC % Saturation Ferritin Total Bilirubin AST ALT Alkaline Phosphatase Ammonia Lactate Dehydrogenase Total Creatine Kinase CK-MB (CK-2) CK-MB (CK-2) % Troponin I Total Protein Albumin Globulin Albumin/Globulin Ratio Vitamin B12 Venous Blood Potassium Urine Color Urine Appearance Urine pH Ur Specific [place] Urine Protein Urine Glucose (UA) Urine Ketones Urine Blood Urine Nitrate Urine Bilirubin Urine Urobilinogen Ur Leukocyte Esterase Urine RBC Urine WBC Ur Epithelial Cells Urine Bacteria Blood Type O POSITIVE Blood Type Confirm Antibody Screen Negative Crossmatch See Detail BBK History Checked No verified bt 03/27/19 17:30 WBC RBC Hgb Hct MCV MCH MCHC RDW Plt Count MPV Neut % (Auto) Lymph % (Auto) [place] % (Auto) Eos % (Auto) Baso % (Auto) Lymph # (Auto) [place] # (Auto) Eos # (Auto) Baso # (Auto) Absolute Neuts (auto) pCO2 pO2 HCO3 ABG pH ABG Total CO2 ABG O2 Saturation ABG O2 Content ABG Base Excess ABG Hemoglobin ABG Carboxyhemoglobin POC ABG HHb (Measured) ABG Methemoglobin ABG O2 Capacity VBG pH VBG pCO2 VBG HCO3 VBG Total CO2 VBG O2 Sat (Calc) VBG Base Excess VBG Potassium Hgb O2 Saturation Glucose Lactate FiO2 Crit Value Called To Crit Value Called By Blood Gas Notified Time Sodium Potassium Chloride Carbon Dioxide Anion Gap BUN Creatinine Est GFR ( Amer) Est GFR (Non-Af Amer) POC Glucose (mg/dL) Random Glucose Lactic Acid Uric Acid Calcium Iron TIBC % Saturation Ferritin Total Bilirubin AST ALT Alkaline Phosphatase Ammonia Lactate Dehydrogenase Total Creatine Kinase CK-MB (CK-2) CK-MB (CK-2) % Troponin I Total Protein Albumin Globulin Albumin/Globulin Ratio Vitamin B12 Venous Blood Potassium Urine Color Urine Appearance Urine pH Ur Specific [place] Urine Protein Urine Glucose (UA) Urine Ketones Urine Blood Urine Nitrate Urine Bilirubin Urine Urobilinogen Ur Leukocyte Esterase Urine RBC Urine WBC Ur Epithelial Cells Urine Bacteria Blood Type Blood Type Confirm O POSITIVE Antibody Screen Crossmatch BBK History Checked Attending/Attestation - Attestation I have personally seen and examined this patient.: Yes I have fully participated in the care of the patient.: Yes I have reviewed all pertinent clinical information: Yes
[2019-03-26] MEDS: Sodium Chloride 0.9% 1,000 ML IV SCH (21:55)
[2019-03-26 22:59] LABS: TROPONIN I < 0.01 ng/mL
[2019-03-26 23:05] LABS: CK MB% 1.3 % (2.5-3.0); CK-MB 5.4 ng/mL (0.0-3.6)
[2019-03-26 23:08] LABS: CALCIUM 7.9 mg/dL (8.4-10.5)
[2019-03-26] MEDS: Vancomycin 500mg in NS 500 MG/100 ML BAG IVPB SCH (23:08)
[2019-03-26] MEDS: Piperacillin/Tazobact 2.25gm 2.25 GM/100 ML BAG IVPB SCH (23:09)
[2019-03-26 23:12] LABS: VENOUS BLOOD GAS BASE EXCESS -3.5 mmol/L (0.0-2.0); VENOUS BLOOD GAS PO2 109 mm/Hg (30-55); VENOUS BLOOD PH 7.34 (7.32-7.43)
[2019-03-26 23:28] LABS: PH,URINE 6.5 (4.7-8.0); URINE BILIRUBIN NEGATIVE (NEGATIVE); URINE BLOOD MODERATE (NEGATIVE); URINE GLUCOSE (UA) NEGATIVE (NEGATIVE); URINE LEUKOCYTE ESTERASE LARGE Leu/uL (NEGATIVE); URINE PROTEIN 100 mg/dL (<30 mg/dL)
[2019-03-26 23:32] LABS: URINE APPEARANCE CLOUDY (CLEAR); URINE COLOR YELLOW (YELLOW)
[2019-03-26 23:49] LABS: URINE BACTERIA SMALL /hpf; URINE WBC 20 - 25 /hpf (0-6)
[2019-03-27] MEDS: Piperacillin/Tazobact 2.25gm 2.25 GM/100 ML BAG IVPB SCH (05:57)
--- NOTE | 2019-03-27 08:32 | RAD ---
Date of service: 03/26/2019 HISTORY: sepsis, shock, source COMPARISON: No prior. TECHNIQUE: 1 view obtained. FINDINGS: LUNGS: No active pulmonary disease. PLEURA: No significant pleural effusion identified, no pneumothorax apparent. CARDIOVASCULAR: Aortic calcification Normal cardiac size. No pulmonary vascular congestion. OSSEOUS STRUCTURES: No significant abnormalities. VISUALIZED UPPER ABDOMEN: Normal. OTHER FINDINGS: None. IMPRESSION: No active disease.
[2019-03-27 08:44] LABS: IRON 13 ug/dL (45-180)
--- NOTE | 2019-03-27 08:47 | CP.PCM.PN ---
Subjective - Date & Time of Evaluation Date of Evaluation: 03/27/19 Time of Evaluation: 06:50 - Subjective Subjective: General Surgery Pt Seen and Examined. Pt not oriented. Cries out when moved but otherwise no response to questions. Warming blanket on. Was hypothermic overnight. Objective - Vital Signs/Intake and Output Vital Signs (last 24 hours): Temp Pulse Resp BP Pulse Ox 94.3 F L 124 H 18 109/73 100 03/27/19 00:50 03/27/19 06:00 03/27/19 00:50 03/27/19 00:50 03/27/19 00:50 Intake and Output: 03/27/19 03/27/19 06:59 18:59 Intake Total 0 Output Total 700 Balance -700 - Medications Medications: Current Medications Sodium Chloride (Sodium Chloride 0.9%) 1,000 mls @ 100 mls/hr IV .Q10H FR[place]N Last Admin: 03/26/19 21:55 Dose: 100 mls/hr Vancomycin HCl (Vancomycin 500mg In Ns) 500 mg in 100 mls @ 200 mls/hr IVPB Q12 FR[place]LYN; Protocol Last Admin: 03/26/19 23:08 Dose: Not Given Meropenem 250 mg/ Sodium (Chloride) 100 mls @ 100 mls/hr IVPB Q12H FRANKLYN; Protocol Stop: 04/04/19 14:01 - Labs Labs: 03/26/19 19:30 03/26/19 22:58 - Constitutional Appears: Non-toxic, No Acute Distress - Head Exam Head Exam: ATRAUMATIC, NORMOCEPHALIC - Respiratory Exam Respiratory Exam: NORMAL BREATHING PATTERN. absent: Respiratory Distress - GI/Abdominal Exam GI & Abdominal Exam: Soft. absent: Distended, Tenderness - Extremities Exam Extremities Exam: absent: Calf Tenderness Additional comments: Clean based ulcer on L Lateral malleolus - Neurological Exam Neurological Exam: Altered - Skin Skin Exam: Dry, Warm Additional comments: Decubitous ulcer on L upper back with fibrinous exudate Assessment and Plan - Assessment and Plan (Free Text) Assessment: 78F with upper back ulcer and L lateral malleolar ulcer Plan: - Continuous antibiotics - Pain control PRN - F/U cultures - Santyl to wounds QD - Heel protectors - Air mattress - Reposition Q2H D/W Dr. Vin Harper PGY4
[2019-03-27 08:53] LABS: % IRON SATURATION 9 % (20-55); TOTAL IRON BINDING CAPACITY 146 ug/dL (265-497)
[2019-03-27 09:15] LABS: ALB/GLOB RATIO 0.7 (1.1-1.8); ALBUMIN 2.6 g/dL (3.0-4.8); CALCIUM 8.1 mg/dL (8.4-10.5)
[2019-03-27] MEDS: Vancomycin 500mg in NS 500 MG/100 ML BAG IVPB SCH ×2 (09:32→22:04)
--- NOTE | 2019-03-27 10:42 | CARD ---
APPROVED REPORT Date of service: 03/26/2019 EKG Measurement Heart [id number] <Conclusion> Normal sinus rhythm Low voltage QRS Borderline ECG
[2019-03-27 12:33] LABS: ARTERIAL BLOOD GAS HCO3 20.8 mmol/L (21-28); ARTERIAL BLOOD GAS HEMOGLOBIN 8.8 g/dL (11.7-17.4); ARTERIAL BLOOD GAS O2 CAPACITY 12.4 mL/dl (16-24); ARTERIAL BLOOD GAS O2 CONTENT 12.3 ML/dl (15-23); ARTERIAL BLOOD GAS O2 SAT 99.3 % (95-98); ARTERIAL BLOOD GAS PCO2 32 mm/Hg (35-45); ARTERIAL BLOOD GAS PH 7.42 (7.35-7.45); ARTERIAL BLOOD GAS TCO2 21.8 mmol.L (22-28)
[2019-03-27 13:17] LABS: BASO # 0.01 K/mm3 (0.0-2.0); HEMOGLOBIN 7.1 g/dL (12.0-16.0); LYMPH # 0.7 (1.2-3.4); LYMPH % 2.7 % (22.0-35.0); MEAN CELL VOLUME 79.1 fl (80.0-105.0); MEAN CORPUSCULAR HGB CONC 30.3 g/dl (31.0-37.0); MONO # 0.9 (0.1-0.6); MONO % 3.8 % (1.0-6.0); RBC 2.96 10^6/uL (3.5-6.1); RED CELL DISTRIBUTION WIDTH 16.3 % (11.5-14.5); WHITE BLOOD COUNT 24.2 10^3/uL (4.5-11.0)
[2019-03-27] MEDS ORDERED: Piperacillin/Tazobact 3.375 gm 100 ML IVPB SCH (14:00)
--- NOTE | 2019-03-27 14:20 | CT ---
Date of service: 03/27/2019 PROCEDURE: CT HEAD WITHOUT CONTRAST. HISTORY: AMS COMPARISON: None available. TECHNIQUE: Axial computed tomography images were obtained through the head/brain without intravenous contrast. Radiation dose: Total exam DLP = 1038.03 mGy-cm. This CT exam was performed using one or more of the following dose reduction techniques: Automated exposure control, adjustment of the mA and/or kV according to patient size, and/or use of iterative reconstruction technique. FINDINGS: HEMORRHAGE: No intracranial hemorrhage. BRAIN: No mass effect or edema. Chronic microvascular changes and mild atrophy VENTRICLES: Unremarkable. No hydrocephalus. CALVARIUM: Unremarkable. PARANASAL SINUSES: Unremarkable as visualized. No significant inflammatory changes. MASTOID AIR CELLS: Unremarkable as visualized. No inflammatory changes. OTHER FINDINGS: None. IMPRESSION: No acute intracranial findings
[2019-03-27] MEDS: Collagenase 250 Units/gm Ointment(30 gm) TOP SCH (14:31)
[2019-03-27] MEDS: Sodium Chloride 0.9% 1,000 ML IV SCH (14:32)
--- NOTE | 2019-03-27 14:34 | CP.PCM.PCO ---
Additional Comments - Additional Comments Additional Comments: continue IV antibiotics as per ID, Hgb 7.1 patient for transfusion, repeat labs in am
--- NOTE | 2019-03-27 15:03 | US ---
Date of service: 03/27/2019 PROCEDURE: Ultrasound of the Kidneys HISTORY: JOSÉ MANUEL COMPARISON: None available. TECHNIQUE: Sonogram of the kidneys. FINDINGS: RIGHT KIDNEY: Measures: 4.4 x 4.8 x 9.9 cm. Normal in size, contour and echogenicity. No stone, solid mass lesion or hydronephrosis visualized. LEFT KIDNEY: Measures: 3.6 x 4.3 x 9.5 cm. Normal in size, contour and echogenicity. No stone, solid mass lesion or hydronephrosis visualized. OTHER FINDINGS: None. IMPRESSION: Unremarkable renal sonogram.
--- NOTE | 2019-03-27 16:28 | CON ---
DATE: 03/27/2019 HEMATOLOGY CONSULTATION HISTORY OF PRESENT ILLNESS: This is an 78-year-old woman with several hematological problems. The patient is demented. She really cannot give me an answer or speak to me. She comes in here with decubitus ulcers. PHYSICAL EXAMINATION: SKIN: No petechiae. No bruises. HEENT: Anicteric. NODES: Nonpalpable in the axillary, cervical, supraclavicular or inguinal regions. LUNGS: Clear. The patient is . ABDOMEN: Shows no liver, no spleen, no tenderness, no rebound. BREAST: Shows no obvious mass. CENTRAL NERVOUS SYSTEM: Demented. Plantars are downgoing bilaterally. LABORATORY DATA: 1. White count of 27,000 with 85% neutrophils. 2. The patient has hemoglobin of 9 with an MCV of 78 and BUN of 61 with a creatinine of 2, fluid hydration with platelet count of million and 39,000. ASSESSMENT AND PLAN: 1. In terms of white count of 27,000; it is probably due to sepsis; however, I am going to order a genetic test for BCR-ABL mutation to rule out chronic myelogenous leukemia. 2. The patient has a platelet count of over a million. A. This is possibly secondary to sepsis. B. Secondary to iron deficiency. C. Genetic mutation of the JAK2. So, I have ordered iron levels and I have also ordered the JAK2 mutation. 3. The patient has hemoglobin of 9, MCV of 78 with a BUN of 62. My feeling is that this will go down the hemoglobin as she gets hydrated. I have ordered iron levels; and because the MCV is low, suggested iron deficiency as well as with the platelet count of million, so I am ordering IV iron that can be repeated as well. So, we are treating for iron deficiency. We are treating for sepsis; however, looking at the background for any mutations for either chronic myelogenous leukemia or an essential thrombocytosis. Srinath Solano MD
--- NOTE | 2019-03-27 16:45 | HP ---
DATE OF EXAM: 03/27/2019 HISTORY OF PRESENT ILLNESS: She was debrided in the [facility] a day ago by surgery for multiple ulcers. She is bed bound. She is contracted. She is get ulcers on her legs and on her back. She went down hill. She is screaming out, lethargic and states 2-3 weeks ago she was hold the conversation. She is an 78-year-old female from [facility] who is now very lethargic and screaming out, very dry. PAST MEDICAL HISTORY: Hypertension, osteoarthritis, compression, CAD, GERD, muscle weakness, depression, chronic wounds, lethargy now, intractable for extremities, bed bound. She was eating about a week or 2 ago. She has CVA, history of falls, gastroesophageal reflux and depression. FAMILY HISTORY: Unknown family history. ALLERGIES: SHE IS ALLERGIES TO NO KNOWN DRUG ALLERGIES. MEDICATIONS: She is on Tylenol, vitamins, multivitamins, Flexeril, Lasix, Cozaar, Remeron, Ensure, ammonium lactate, Ecotrin, Lioresal, banana flakes, iron, Ultram and CoQ10. REVIEW OF SYSTEMS: Unable to be do it because of her altered mental status so she just screaming out at this time. PHYSICAL EXAMINATION: VITAL SIGNS: She has a 98.1 temp, 65 pulse, 17 respiratory rate, 122/71 blood pressure and 100% O2 sat. HEENT: Head is atraumatic and normocephalic. Difficult to do extraocular muscles because her eyes are closed. She is off. THROAT: Quite dry. HEART: Regular rate. Normal, S1 and S2. LUNGS: Decreased breath sounds. Very poor inspirations. No wheezes, rhonchi or rales. ABDOMEN: Soft and nontender. Positive bowel sounds. Scaphoid. EXTREMITIES: All four extremities are contracted. There are right foot dressings. Upper back is a large wound. Wound vac, multiple sacral ulcers. Surgery is being following her. She is alert to nothing right now. She is yelling and you cannot wake her upto be coherent. She has multiple test done. LABORATORY DATA: Chest x-ray is no active disease. She has a urine which shows large leukocytes, small bacteria. Sodium 134, potassium 4.8, BUN is 61 and creatinine 2 very dry, GFR is 24, last sugar is 103, calcium is 7.9, lactate was 2.3, then it bumped up to 3.5. White count is 27,000, hemoglobin is 9, hematocrit 20.9 and platelets of 1039. She is here for sepsis, decubitus ulcers, infection, UTI and thrombocytosis. Have consults with hematology, Surgery, Infectious Disease. We will give her IV fluids, IV antibiotics. Check her labs and wound care, oxygen and swallow evaluation. Hopefully she will improve. Dalton Meek DO MTDGarrett
--- NOTE | 2019-03-27 20:24 | CON ---
DATE OF CONSULTATION: 03/27/2019 The patient is seen earlier today in room 368, bed 2. CHIEF COMPLAINT: Multiple decubitus ulcer times several days and weeks. HISTORY OF PRESENT ILLNESS: This is an 78-year-old female from a [facility] with dementia, hypertension, cerebrovascular accident, cord compression, coronary artery disease, contracted, had been chronically ill, depression, and the patient does not verbalize. Information is gathered from the nurse. There has been hypothermia reported, shortness of breath and tachycardia reported by nursing staff and multiple wound infections. REVIEW OF SYSTEMS: Reveals a 12-point review of systems performed. PAST MEDICAL HISTORY: Significant for hypertension, dementia, osteoarthritis, cerebrovascular accident, cord compression, CAD, GERD, leg contractions, chronic wound infection, and depression. PAST SURGICAL HISTORY: Noncontributory. ALLERGIES: THE PATIENT HAS NO KNOWN ALLERGIES. MEDICATIONS: Medications at the [facility] reveals the patient to be on losartan, Lasix, tramadol, and aspirin. PHYSICAL EXAMINATION: GENERAL: She is in bed, appearing chronically ill. She appears older than her stated age. VITAL SIGNS: T-max of 99.8, T-min is 94.3, a heart rate of 134, respiratory rate of 20, blood pressure is 94/60. HEENT: Examination of HEENT is unremarkable. NECK: Supple. LUNGS: Have decreased breath sounds. HEART: Normal S1, S2. ABDOMEN: Soft, nontender. SKIN: Examination of the multiple ulcers, decubiti breakdown in the back, in the hip, in the legs, we will resect it. LABORATORY DATA: Laboratory examination reveals a white count of 27,000, hemoglobin of 9, and the platelets of over a million. Chemistries revealed the patient's creatinine is 1.9, it was 2.1 on admission, and an alk phos of 129. Urinalysis is noted, 20-25 wbc's with small bacteria. Microbiology reveals the sacral cultures are pending, blood cultures and urine cultures are pending. The patient also had a chest x-ray, which was no active lung disease, and a CAT scan of the head, which was no active hemorrhage. ASSESSMENT AND PLAN: An 78-year-old female, [facility] patient with; 1. Severe sepsis, multiple infected ulcers with urine possibly a source versus gastrointestinal with acute kidney injury with creatinine of 2.1. We will treat the patient with intermittent vancomycin and meropenem. I also recommend a CAT scan of the abdomen and pelvis to rule out intra-abdominal pathology, vancomycin and meropenem pending pancultures, and CAT scan of the abdomen and pelvis results. We will follow with you. Overall prognosis is quite poor for this patient. Carlton Lopez MD
[2019-03-28 07:39] LABS: MEAN CORPUSCULAR HEMOGLOBIN 24.5 pg (25.0-35.0); MEAN PLATELET VOLUME 8.1 fl (7.0-11.0); RBC 3.96 10^6/uL (3.5-6.1); RED CELL DISTRIBUTION WIDTH 17.1 % (11.5-14.5); WHITE BLOOD COUNT 18.7 10^3/uL (4.5-11.0)
[2019-03-28 07:42] LABS: HEMOGLOBIN 9.7 g/dL (12.0-16.0)
[2019-03-28 07:59] LABS: ALB/GLOB RATIO 0.7 (1.1-1.8); ALBUMIN 2.5 g/dL (3.0-4.8)
[2019-03-28] MEDS: Dextrose 5%/0.45% NS 1,000 ML IV SCH (08:02)
--- NOTE | 2019-03-28 09:48 | CP.PCM.CON ---
<Colten Rai - Last Filed: 03/28/19 11:32> History of Present Illness - History of Present Illness History of Present Illness: PGY6 GI Fellow Consult Note Patient is an 78yo female with PMHx significant for dementia, bedbound with multiple decubitus ulcers, recommended to undergo amputation due to nonhealing foot wounds (refused by family), HTN, OA, CAD and GERD who was sent to the hospital for wound evaluation and increased lethargy. The patient does not provide history and only moans/screams even just moving the patient's bed sheet. Our service has been consult for anemia. The patient has not had any episodes of overt bleeding at the residential or since admission with the exception of bleeding after surgical debridement of wounds at [facility]. She had a loose brown BM yesterday evening. She was found to be rather volume depleted on admission, treated with IVF and a drop in HGB from 9 to 7.1 was noted with accompanying drops in all cell lines and hematocrit as to be expected with resuscitation. There is concern for infection of known wounds and patient has been placed on broad spectrum antibiotics. 12 system ROS cannot be completed given clinical condition and dementia PMHx: See HPI PSHx: Unable to assess FHx: Unable to assess Social: No known tobacco, EtOH or illicit drug use Endo: No prior endoscopic evaluations documented Past Patient History - Infectious Disease Hx of Infectious Diseases: None - Past Social History Smoking Status: Unknown If Ever Smoked - CARDIAC Hx Cardiac Disorders: Yes Hx Hypertension: Yes - PULMONARY Hx Respiratory Disorders: No - NEUROLOGICAL Hx Neurological Disorder: Yes HX Cerebrovascular Accident: Yes - RENAL Hx Chronic Kidney Disease: No - ENDOCRINE/METABOLIC Hx Endocrine Disorders: No - HEMATOLOGICAL/ONCOLOGICAL Hx Blood Disorders: No - INTEGUMENTARY Hx Dermatological Problems: Yes (pressure ulcers) - MUSCULOSKELETAL/RHEUMATOLOGICAL Hx Falls: Yes Hx Osteoarthritis: Yes - GASTROINTESTINAL Hx Gastrointestinal Disorders: Yes Hx Gastroesophageal Reflux: Yes - PSYCHIATRIC Hx Depression: Yes Hx Substance Use: No Meds Allergies/Adverse Reactions: Allergies Allergy/AdvReac Type Severity Reaction Status Date / Time No Known Allergies Allergy Verified 03/26/19 17:22 - Medications Medications: Current Medications Acetaminophen (Tylenol 325 Mg Supp) 325 mg RC Q6H PRN PRN Reason: Temperature Last Admin: 03/27/19 09:33 Dose: 325 mg Collagenase (Santyl) 0 gm TOP DAILY FRANKLYN Last Admin: 03/27/19 14:31 Dose: 1 applic Vancomycin HCl (Vancomycin 500mg In Ns) 500 mg in 100 mls @ 200 mls/hr IVPB Q12 FRANKLYN; Protocol Last Admin: 03/27/19 22:04 Dose: 200 mls/hr Meropenem 250 mg/ Sodium (Chloride) 100 mls @ 100 mls/hr IVPB Q12H FRANKLYN; Protocol Stop: 04/04/19 14:01 Last Admin: 03/28/19 06:38 Dose: 100 mls/hr Dextrose/Sodium Chloride (Dextrose 5%/0.45% Ns 1000 Ml) 1,000 mls @ 60 mls/hr IV .[id number] FRANKLYN Last Admin: 03/28/19 08:02 Dose: 60 mls/hr Potassium Chloride (Potassium Chloride 20 Meq/100 Ml) 20 meq in 100 mls @ 50 mls/hr IVPB Q2H FRANKLYN Stop: 03/28/19 12:29 Ketorolac Tromethamine (Toradol) 30 mg IVP Q6H PRN PRN Reason: Pain, moderate (4-7) Last Admin: 03/28/19 08:23 Dose: 30 mg Lorazepam (Ativan) 0.5 mg IVP Q6H PRN; Protocol PRN Reason: Anxiety Last Admin: 03/27/19 17:19 Dose: 0.5 mg Physical Exam - Constitutional Appears: Agitated, Confused, Chronically Ill - Eye Exam Eye Exam: PERRL Additional comments: does not cooperate with exam - ENT Exam ENT Exam: Mucous Membranes Dry - Respiratory Exam Respiratory Exam: Decreased Breath Sounds. absent: Clear to Auscultation Bilateral, Rales, Rhonchi, Wheezes - Cardiovascular Exam Cardiovascular Exam: RRR, +S1, +S2 - GI/Abdominal Exam GI & Abdominal Exam: Normal Bowel Sounds, Soft. absent: Distended, Firm, Guarding, Organomegaly, Rigid, Tenderness - Extremities Exam Additional comments: multiple decubitus ulcers - Neurological Exam Neurological exam: Altered - Psychiatric Exam Psychiatric exam: Agitated, Anxious - Skin Skin Exam: Dry Results - Vital Signs Recent Vital Signs: Last Vital Signs Temp 100 F H 03/28/19 08:40 Pulse 113 H 03/28/19 08:40 Resp 20 03/28/19 08:40 BP 105/69 03/28/19 08:40 Pulse Ox 100 03/28/19 08:40 - Labs Result Diagrams: 03/28/19 07:20 03/28/19 07:20 Labs: Laboratory Results - last 24 hr 03/26/19 03/27/19 03/27/19 21:33 08:10 11:39 WBC RBC Hgb Hct MCV MCH MCHC RDW Plt Count MPV Neut % (Auto) Lymph % (Auto) [place] % (Auto) Eos % (Auto) Baso % (Auto) Lymph # (Auto) [place] # (Auto) Eos # (Auto) Baso # (Auto) Absolute Neuts (auto) pCO2 pO2 HCO3 ABG pH ABG Total CO2 ABG O2 Saturation ABG O2 Content ABG Base Excess ABG Hemoglobin ABG Carboxyhemoglobin POC ABG HHb (Measured) ABG Methemoglobin ABG O2 Capacity Hgb O2 Saturation FiO2 Sodium Potassium Chloride Carbon Dioxide Anion Gap BUN Creatinine Est GFR ( Amer) Est GFR (Non-Af Amer) POC Glucose (mg/dL) 97 80 Random Glucose Lactic Acid Uric Acid Calcium Ferritin 876.0 Total Bilirubin AST ALT Alkaline Phosphatase Ammonia Total Protein Albumin Globulin Albumin/Globulin Ratio Vitamin B12 326 Blood Type Blood Type Confirm Antibody Screen Crossmatch BBK History Checked 03/27/19 03/27/19 03/27/19 12:15 12:15 12:20 WBC RBC Hgb Hct MCV MCH MCHC RDW Plt Count MPV Neut % (Auto) Lymph % (Auto) [place] % (Auto) Eos % (Auto) Baso % (Auto) Lymph # (Auto) [place] # (Auto) Eos # (Auto) Baso # (Auto) Absolute Neuts (auto) pCO2 32 L pO2 146.0 H HCO3 20.8 L ABG pH 7.42 ABG Total CO2 21.8 L ABG O2 Saturation 99.3 H ABG O2 Content 12.3 L ABG Base Excess -3.2 L ABG Hemoglobin 8.8 L ABG Carboxyhemoglobin 1.4 POC ABG HHb (Measured) 0.7 ABG Methemoglobin 1.5 ABG O2 Capacity 12.4 L Hgb O2 Saturation 96.4 FiO2 28.0 Sodium Potassium Chloride Carbon Dioxide Anion Gap BUN Creatinine Est GFR ( Amer) Est GFR (Non-Af Amer) POC Glucose (mg/dL) Random Glucose Lactic Acid 1.2 Uric Acid Calcium Ferritin Total Bilirubin AST ALT Alkaline Phosphatase Ammonia 15 Total Protein Albumin Globulin Albumin/Globulin Ratio Vitamin B12 Blood Type Blood Type Confirm Antibody Screen Crossmatch BBK History Checked 03/27/19 03/27/19 03/27/19 12:50 12:50 16:09 WBC 24.2 H RBC 2.96 L Hgb 7.1 L Hct 23.4 L MCV 79.1 L MCH 24.0 L MCHC 30.3 L RDW 16.3 H Plt Count 693 H MPV 8.0 Neut % (Auto) 93.5 H Lymph % (Auto) 2.7 L [place] % (Auto) 3.8 Eos % (Auto) 0.0 L Baso % (Auto) 0.0 Lymph # (Auto) 0.7 L [place] # (Auto) 0.9 H Eos # (Auto) 0.0 Baso # (Auto) 0.01 Absolute Neuts (auto) 22.67 H pCO2 pO2 HCO3 ABG pH ABG Total CO2 ABG O2 Saturation ABG O2 Content ABG Base Excess ABG Hemoglobin ABG Carboxyhemoglobin POC ABG HHb (Measured) ABG Methemoglobin ABG O2 Capacity Hgb O2 Saturation FiO2 Sodium Potassium Chloride Carbon Dioxide Anion Gap BUN Creatinine Est GFR ( Amer) Est GFR (Non-Af Amer) POC Glucose (mg/dL) 85 Random Glucose Lactic Acid Uric Acid 7.5 H Calcium Ferritin Total Bilirubin AST ALT Alkaline Phosphatase Ammonia Total Protein Albumin Globulin Albumin/Globulin Ratio Vitamin B12 Blood Type Blood Type Confirm Antibody Screen Crossmatch BBK History Checked 03/27/19 03/27/19 03/27/19 16:30 17:30 21:40 WBC RBC Hgb Hct MCV MCH MCHC RDW Plt Count MPV Neut % (Auto) Lymph % (Auto) [place] % (Auto) Eos % (Auto) Baso % (Auto) Lymph # (Auto) [place] # (Auto) Eos # (Auto) Baso # (Auto) Absolute Neuts (auto) pCO2 pO2 HCO3 ABG pH ABG Total CO2 ABG O2 Saturation ABG O2 Content ABG Base Excess ABG Hemoglobin ABG Carboxyhemoglobin POC ABG HHb (Measured) ABG Methemoglobin ABG O2 Capacity Hgb O2 Saturation FiO2 Sodium Potassium Chloride Carbon Dioxide Anion Gap BUN Creatinine Est GFR ( Amer) Est GFR (Non-Af Amer) POC Glucose (mg/dL) 91 Random Glucose Lactic Acid Uric Acid Calcium Ferritin Total Bilirubin AST ALT Alkaline Phosphatase Ammonia Total Protein Albumin Globulin Albumin/Globulin Ratio Vitamin B12 Blood Type O POSITIVE Blood Type Confirm O POSITIVE Antibody Screen Negative Crossmatch See Detail BBK History Checked No verified bt 03/28/19 03/28/19 03/28/19 07:20 07:20 07:36 WBC 18.7 H D RBC 3.96 Hgb 9.7 L D Hct 31.3 L MCV 79.0 L MCH 24.5 L MCHC 31.0 RDW 17.1 H Plt Count 669 H MPV 8.1 Neut % (Auto) Lymph % (Auto) [place] % (Auto) Eos % (Auto) Baso % (Auto) Lymph # (Auto) [place] # (Auto) Eos # (Auto) Baso # (Auto) Absolute Neuts (auto) pCO2 pO2 HCO3 ABG pH ABG Total CO2 ABG O2 Saturation ABG O2 Content ABG Base Excess ABG Hemoglobin ABG Carboxyhemoglobin POC ABG HHb (Measured) ABG Methemoglobin ABG O2 Capacity Hgb O2 Saturation FiO2 Sodium 144 Potassium 3.1 L Chloride 114 H Carbon Dioxide 21 Anion Gap 12 BUN 49 H Creatinine 1.5 H Est GFR ( Amer) 40 Est GFR (Non-Af Amer) 33 POC Glucose (mg/dL) 63 L Random Glucose 56 L Lactic Acid Uric Acid Calcium 8.0 L Ferritin Total Bilirubin 0.6 AST 49 H ALT 16 Alkaline Phosphatase 111 Ammonia Total Protein 5.7 L Albumin 2.5 L Globulin 3.3 Albumin/Globulin Ratio 0.7 L Vitamin B12 Blood Type Blood Type Confirm Antibody Screen Crossmatch BBK History Checked Assessment & Plan - Assessment and Plan (Free Text) Assessment: Patient is an 78yo female with PMHx significant for dementia, bedbound with multiple decubitus ulcers, recommended to undergo amputation due to nonhealing foot wounds (refused by family), HTN, OA, CAD and GERD who was sent to the [facility] for wound evaluation and increased lethargy -Iron deficiency anemia -Decubitus ulcers - concern for acute infection -Abnormal U/A concern for UTI -Prerenal azotemia, JOSÉ MANUEL -Failure to thrive -Dementia -CAD Plan: -No overt bleeding noted since admission, brown stool noted -Suspect drop in HGB 2/2 to IVF resuscitation in the absence of overt bleeding -Ongoing IVF for prerenal azotemia and volume depletion -Patient has multiple potential wound sources for infection as well as abnormal U/A - ID following, on empiric therapy -Altered mentation suspected to be a result of infectious process -Given numerous comorbidities, encourage palliative consultation - Date & Time Date: 03/28/19 Time: 08:05 <Claude Monk - Last Filed: 03/28/19 14:33> Meds - Medications Medications: Current Medications Acetaminophen (Tylenol 325 Mg Supp) 325 mg RC Q6H PRN PRN Reason: Temperature Last Admin: 03/27/19 09:33 Dose: 325 mg Collagenase (Santyl) 0 gm TOP DAILY FRANKLYN Last Admin: 03/28/19 10:19 Dose: Not Given Vancomycin HCl (Vancomycin 500mg In Ns) 500 mg in 100 mls @ 200 mls/hr IVPB Q12 FRANKLYN; Protocol Last Admin: 03/28/19 10:19 Dose: 200 mls/hr Meropenem 250 mg/ Sodium (Chloride) 100 mls @ 100 mls/hr IVPB Q12H FRANKLYN; Protocol Stop: 04/04/19 14:01 Last Admin: 03/28/19 14:17 Dose: 100 mls/hr Dextrose/Sodium Chloride (Dextrose 5%/0.45% Ns 1000 Ml) 1,000 mls @ 60 mls/hr IV .[id number] FRANKLYN Last Admin: 03/28/19 08:02 Dose: 60 mls/hr Ketorolac Tromethamine (Toradol) 30 mg IVP Q6H PRN PRN Reason: Pain, moderate (4-7) Last Admin: 03/28/19 08:23 Dose: 30 mg Lorazepam (Ativan) 0.5 mg IVP Q6H PRN; Protocol PRN Reason: Anxiety Last Admin: 03/27/19 17:19 Dose: 0.5 mg Sodium Hypochlorite (Dakins Solution 0.25%) 0 ml TOP DAILY FRANKLYN Last Admin: 03/28/19 10:18 Dose: Not Given Results - Vital Signs Recent Vital Signs: Last Vital Signs Temp 100 F H 03/28/19 08:40 Pulse 113 H 03/28/19 08:40 Resp 20 03/28/19 08:40 BP 105/69 03/28/19 08:40 Pulse Ox 100 03/28/19 08:40 - Labs Result Diagrams: 03/28/19 07:20 03/28/19 07:20 Labs: Laboratory Results - last 24 hr 03/26/19 03/27/19 03/27/19 21:33 16:09 16:30 WBC RBC Hgb Hct MCV MCH MCHC RDW Plt Count MPV Sodium Potassium Chloride Carbon Dioxide Anion Gap BUN Creatinine Est GFR ( Amer) Est GFR (Non-Af Amer) POC Glucose (mg/dL) 97 85 Random Glucose Calcium Total Bilirubin AST ALT Alkaline Phosphatase Total Protein Albumin Globulin Albumin/Globulin Ratio Blood Type O POSITIVE Blood Type Confirm Antibody Screen Negative Crossmatch See Detail BBK History Checked No verified bt 03/27/19 03/27/19 03/28/19 17:30 21:40 07:20 WBC 18.7 H D RBC 3.96 Hgb 9.7 L D Hct 31.3 L MCV 79.0 L MCH 24.5 L MCHC 31.0 RDW 17.1 H Plt Count 669 H MPV 8.1 Sodium Potassium Chloride Carbon Dioxide Anion Gap BUN Creatinine Est GFR ( Amer) Est GFR (Non-Af Amer) POC Glucose (mg/dL) 91 Random Glucose Calcium Total Bilirubin AST ALT Alkaline Phosphatase Total Protein Albumin Globulin Albumin/Globulin Ratio Blood Type Blood Type Confirm O POSITIVE Antibody Screen Crossmatch BBK History Checked 03/28/19 03/28/19 03/28/19 07:20 07:36 11:28 WBC RBC Hgb Hct MCV MCH MCHC RDW Plt Count MPV Sodium 144 Potassium 3.1 L Chloride 114 H Carbon Dioxide 21 Anion Gap 12 BUN 49 H Creatinine 1.5 H Est GFR ( Amer) 40 Est GFR (Non-Af Amer) 33 POC Glucose (mg/dL) 63 L 76 Random Glucose 56 L Calcium 8.0 L Total Bilirubin 0.6 AST 49 H ALT 16 Alkaline Phosphatase 111 Total Protein 5.7 L Albumin 2.5 L Globulin 3.3 Albumin/Globulin Ratio 0.7 L Blood Type Blood Type Confirm Antibody Screen Crossmatch BBK History Checked Attending/Attestation - Attestation I have personally seen and examined this patient.: Yes I have fully participated in the care of the patient.: Yes I have reviewed all pertinent clinical information: Yes Notes (Text): 03/28/19 14:27 I have seen and examined patient with GI fellow. Agree with above documentation with the following additions. In brief, this is an 78 year old male with history of dementia, chronically bedbound with sacral decubitus ulcers, HTN, GERD, OA who presents to hospital for treatment of wound infection. GI called for evaluation of anemia. Patient is not able to participate in meaningful conversation, additional history obtained via chart review, discussion with patient's family and nursing staff. She is observed to be moaning and screaming in bed, which is apparently a departure from what her baseline is. Despite this, there is no specific reported abdominal pain, nausea, vomiting. She had one loose brown bowel movement yesterday. As per family, patient was able to consume food on her own as of two weeks ago. Unclear regarding prior endoscopic history. Dementia Sacral decubitus ulcers, wound infection HTN GERD OA Anemia, iron deficiency Acute renal insufficiency UTI - NPO - Continue to monitor H/H, s/p PRBC transfusion. No overt bleeding noted. - Continue with antibiotic therapy as per medical team - Continue with IVF hydration, supportive care, monitor creatinine - No planned GI intervention at this time, will continue to monitor patient clinical course
[2019-03-28] MEDS: Dakin's Topical 0.25%-Half Strength (480 ml) TOP SCH (10:18)
[2019-03-28] MEDS: Vancomycin 500mg in NS 500 MG/100 ML BAG IVPB SCH ×2 (10:19→21:10)
[2019-03-28] MEDS: Collagenase 250 Units/gm Ointment(30 gm) TOP SCH (10:19)
--- NOTE | 2019-03-28 12:22 | CT ---
Date of service: 03/27/2019 PROCEDURE: CT Abdomen and Pelvis without intravenous contrast HISTORY: AMS/ anemia/leukocytosis COMPARISON: None. TECHNIQUE: Technique. Contrast dose: Radiation dose: Total exam DLP = 512.85 mGy-cm. This CT exam was performed using one or more of the following dose reduction techniques: Automated exposure control, adjustment of the mA and/or kV according to patient size, and/or use of iterative reconstruction technique. FINDINGS: LOWER THORAX: Unremarkable. LIVER: Unremarkable. No gross lesion or ductal dilatation. GALLBLADDER AND BILE DUCTS: Gallstones are seen. The gallbladder is mildly distended. There is no wall thickening or surrounding fluid. PANCREAS: Unremarkable. No gross lesion or ductal dilatation. SPLEEN: Unremarkable. ADRENALS: Unremarkable. No mass. KIDNEYS AND URETERS: Unremarkable. No hydronephrosis. No solid mass. VASCULATURE: Unremarkable. No aortic aneurysm. No aortic atherosclerotic calcification or mural plaque present. BOWEL: Unremarkable. No obstruction. No gross mural thickening. There is constipation with fecal impaction. The rectum measures 8 x 11 cm APPENDIX: Unremarkable. Normal appendix. PERITONEUM: Unremarkable. No free fluid. No free air. LYMPH NODES: Unremarkable. No enlarged lymph nodes. BLADDER: Unremarkable. REPRODUCTIVE: Unremarkable. BONES: No acute fracture. OTHER FINDINGS: The report concurs with the preliminary [facility] report IMPRESSION: Gallstones. Fecal impaction. No acute intra-abdominal findings
--- NOTE | 2019-03-28 13:57 | CP.PCM.PCO ---
Physician Communication Note - Physician Communication Note Physician Communication Note: multiple wounds, surgery following continue antibiotics as per ID
--- NOTE | 2019-03-28 15:05 | PN ---
DATE: 03/28/2019 SUBJECTIVE: I saw her in bed today. She is still yelling, but not as bad. She has actually looked at me a few times today trying to speak, this is a good sign for her. She is not yet out of it and stopped screaming when asked her to stop. So, I know she is listening. She is on Ativan, Dextrose, Merrem, potassium replacements, Santyl, Toradol, Tylenol, and vancomycin. She is very contracted with numerous ulcers. PHYSICAL EXAMINATION: VITAL SIGNS: She has a temperature that went to 100 this morning, 113 pulse, 105/69 blood pressure, 20 respiratory rate, 100% O2 sat. HEAD: Atraumatic, normocephalic. Her mouth is a little bit more moist, it was very dry yesterday. HEART: Regular rate. LUNGS: Decreased breath sounds. ABDOMEN: Soft. EXTREMITIES: All four are contracted with multiple ulcers in the legs and on the back. LABORATORY DATA: She has an 18.7 white count that came down from 27, which is great; 9.7 hemoglobin after 2 units of packed red blood cells, it is very good; hematocrit 31.3; platelets are 669, coming down. Her lactate was 3.5 last time. Sodium 144; potassium 3.1, I have replaced the potassium; BUN is 49; creatinine 1.5 and that is coming down very nicely too. Her kidneys are starting to improve. Sugar was 63; I changed her IV to D5 and half and one half normal, calcium is 8, total bili is 0.6. AST is 49, ALT is 69, alk phos 111, total protein 5.7. Urine with large leukocytes. ASSESSMENT AND PLAN: She has multiple skin ulcers. She has got a little bit of an infection going on and a bad urine, dehydrated, multiple decubitus ulcers which likely are infected, and she is on good IV antibiotics by Infectious Disease. She is being seen by Infectious Disease, Hematology, Surgery, Gastroenterology. We will continue aggressive treatment and care on Sally Nieves. the numbers will keep on improving with the treatment. Dalton Meek DO [facility] # [id number] MTDD
--- NOTE | 2019-03-28 19:48 | PN ---
DATE: 03/28/2019 SUBJECTIVE: The patient is in bed, in no acute distress, nontoxic. PHYSICAL EXAMINATION VITAL SIGNS: Temperature is 100, blood pressure is 105/60, respiratory rate of 20. HEENT: Unremarkable. NECK: Supple. LUNGS: Have decreased breath sounds. HEART: Normal S1, S2. ABDOMEN: Soft. LABORATORY DATA: Reveals the patient's white count is 18,700, hemoglobin of 9. Creatinine is 1.5. Microbiology reveals gram-negative ramírez, gram-positive cocci, another gram-negative ramírez from sacral ulcers. Blood cultures are negative. Urine cultures are negative. REVIEW OF ORDERS: The patient is currently on vancomycin and meropenem. ASSESSMENT AND PLAN: An 78-year-old female seen earlier this morning in room 368, bed 2, who was admitted from detention with; 1. Severe sepsis, multiple infected ulcers with acute kidney injury which appears to be improving on vancomycin, meropenem. Waiting for identification and sensitivity of the organism from the sacrum. A CT scan of the abdomen and pelvis is done, which reveals to be in no acute intraabdominal findings. We will follow the WBC's and culture results. Carlton Lopez MD
--- NOTE | 2019-03-28 23:25 | CON ---
DATE: 03/28/2019 HISTORY OF PRESENT ILLNESS: This is an 78-year-old female with past medical history of dementia, hypertension, coronary artery disease, osteoarthritis, GERD, and had multiple decubitus ulcer on the leg, foot, not healing. The patient is very lethargic. Wound is clean and I called to evaluate the patient for altered mental status. Her hemoglobin dropped from 9 to 7.1. PAST MEDICAL HISTORY: As above. SOCIAL HISTORY: Does not smoke. Does not drink. Resident of a jail. IMPRESSION: 1. Encephalopathy superimposed on dementia. 2. Multiple decubitus ulcer. 3. Hypertension. 4. Coronary artery disease. PLAN: The patient came to hospital for increasing lethargy. Her CAT scan of the head was done, which was reported as negative. Workup in progress. CAT scan of the head was negative for bleed. Continue present management. We will follow up. Lacho Tapia MD
[2019-03-29] MEDS: Dextrose 5%/0.45% NS 1,000 ML IV SCH ×2 (01:08→22:39)
--- NOTE | 2019-03-29 08:37 | CP.PCM.PN ---
Subjective - Date & Time of Evaluation Date of Evaluation: 03/29/19 Time of Evaluation: 08:34 - Subjective Subjective: General Surgery Dr. Banuelos Pt seen and examined @bedside. No acute events overnight. pt demented at baseline. ROS unobtainable. Objective - Vital Signs/Intake and Output Vital Signs (last 24 hours): Temp Pulse Resp BP Pulse Ox 97.5 F L 71 18 137/71 96 03/29/19 08:17 03/29/19 08:17 03/29/19 08:17 03/29/19 08:17 03/29/19 08:17 Intake and Output: 03/29/19 03/29/19 06:59 18:59 Intake Total 1200 Balance 1200 - Medications Medications: Current Medications Acetaminophen (Tylenol 325 Mg Supp) 325 mg RC Q6H PRN PRN Reason: Temperature Last Admin: 03/27/19 09:33 Dose: 325 mg Collagenase (Santyl) 0 gm TOP DAILY FRANKLYN Last Admin: 03/28/19 10:19 Dose: Not Given Vancomycin HCl (Vancomycin 500mg In Ns) 500 mg in 100 mls @ 200 mls/hr IVPB Q12 FRANKLYN; Protocol Last Admin: 03/28/19 21:10 Dose: 200 mls/hr Meropenem 250 mg/ Sodium (Chloride) 100 mls @ 100 mls/hr IVPB Q12H FRANKLYN; Protocol Stop: 04/04/19 14:01 Last Admin: 03/29/19 01:08 Dose: 100 mls/hr Dextrose/Sodium Chloride (Dextrose 5%/0.45% Ns 1000 Ml) 1,000 mls @ 60 mls/hr IV .[id number] FRANKLYN Last Admin: 03/29/19 01:08 Dose: 60 mls/hr Ketorolac Tromethamine (Toradol) 30 mg IVP Q6H PRN PRN Reason: Pain, moderate (4-7) Last Admin: 03/28/19 22:38 Dose: 30 mg Lorazepam (Ativan) 0.5 mg IVP Q6H PRN; Protocol PRN Reason: Anxiety Last Admin: 03/28/19 16:16 Dose: 0.5 mg Sodium Hypochlorite (Dakins Solution 0.25%) 0 ml TOP DAILY FRANKLYN Last Admin: 03/28/19 10:18 Dose: Not Given - Labs Labs: 03/28/19 07:20 03/28/19 07:20 - Constitutional Appears: Non-toxic, No Acute Distress - Head Exam Head Exam: NORMAL INSPECTION - ENT Exam ENT Exam: Mucous Membranes Moist - Respiratory Exam Respiratory Exam: NORMAL BREATHING PATTERN. absent: Accessory Muscle Use, Respiratory Distress - Cardiovascular Exam Cardiovascular Exam: absent: Bradycardia, Tachycardia - GI/Abdominal Exam GI & Abdominal Exam: Soft. absent: Distended, Tenderness - Extremities Exam Additional comments: L lateral maleolus wound w/ dressing intact R halus metatarsal w/ dry necorsis - Back Exam Additional comments: sacral and L shoulder wound w/ dressing in place - Neurological Exam Neurological Exam: Altered - Skin Skin Exam: Dry, Warm Assessment and Plan - Assessment and Plan (Free Text) Assessment: 78 y/o demented F w/ multiple pressure ulcers. Plan: - daily dressing changes - santyl to all wound bases - pack sacral and shoulder wound w/ dakins-soaked gauze for wet-to-dry dressings - Turn Q2 - cont air mattress - maintain heel protectors - f/u wound care Pt discussed w/ Dr. Vin Mcdaniel PGY3
[2019-03-29 09:04] LABS: MEAN CELL VOLUME 81.8 fl (80.0-105.0); MEAN CORPUSCULAR HEMOGLOBIN 23.6 pg (25.0-35.0); MEAN CORPUSCULAR HGB CONC 28.9 g/dl (31.0-37.0); MEAN PLATELET VOLUME 8.7 fl (7.0-11.0); RBC 4.23 10^6/uL (3.5-6.1); RED CELL DISTRIBUTION WIDTH 17.9 % (11.5-14.5)
[2019-03-29] MEDS: Dakin's Topical 0.25%-Half Strength (480 ml) TOP SCH (09:39)
[2019-03-29] MEDS: Vancomycin 500mg in NS 500 MG/100 ML BAG IVPB SCH ×2 (09:39→22:42)
[2019-03-29] MEDS: Collagenase 250 Units/gm Ointment(30 gm) TOP SCH (09:39)
[2019-03-29 09:50] LABS: BLOOD UREA NITROGEN 39 mg/dL (7-21); CALCIUM 8.3 mg/dL (8.4-10.5); GFR NON-AFRICAN AMERICAN 53
[2019-03-29 09:51] LABS: ALB/GLOB RATIO 0.7 (1.1-1.8); ALBUMIN 2.3 g/dL (3.0-4.8); ALT/SGPT 23 U/L (7-56); AST/SGOT 36 U/L (14-36)
--- NOTE | 2019-03-29 10:48 | PN ---
DATE: 03/29/2019 SUBJECTIVE: The patient was seen earlier today in room 368 bed two. No fevers and no chills, no nausea. PHYSICAL EXAMINATION: VITAL SIGNS: Temperature is 100, blood pressure is 105/60, respiratory rate of 18. HEENT: Unremarkable. NECK: Supple. LUNGS: Have decreased breath sounds. HEART: Normal S1 and S2. ABDOMEN: Soft and nontender. LABORATORY DATA: Reveals a white count of 18,000, hemoglobin of 9, BUN of 49, creatinine of 1.5. Urinalysis is noted. Microbiology reveals a gram-positive cocci in one bottle and clusters, it is a coag-negative staph by PNA FISH and there is gram-negative ramírez and a gram-positive cocci from sacrum, the second bottle of blood cultures, no growth. ASSESSMENT AND PLAN: This is an 78-year-old female who was seen earlier today in room 368 bed two, 1. Severe sepsis, multiple infected ulcers, acute kidney injury, and gram-positive cocci bacteremia, awaiting for identification of the cultures, currently on vancomycin and meropenem. We will repeat blood cultures x2. We will order an echo to rule out endocarditis although it is only one bottle and check on the repeat blood cultures. Carlton Lopez MD
--- NOTE | 2019-03-29 13:55 | PN ---
DATE: 03/29/2019 SUBJECTIVE: I saw her in bed. She is alert. Eyes are looking at me, not talking yet, less yelling. I think, she is little bit more alert. Clinically, she looks like a little bit better. She is being seen by Infectious Disease for severe sepsis and multiple infected decubitus ulcers. She had encephalopathy superimposed on dementia with multiple decubitus ulcers. PHYSICAL EXAMINATION: VITAL SIGNS: She has a 97.5 temperature, 71 pulse, 137/71 blood pressure, 18 respiratory rate, 96% O2 sat on nasal cannula. HEENT: Head is atraumatic, normocephalic. Throat is dry. NECK: Supple. HEART: Regular rate. LUNGS: Decreased breath sounds, but clear to auscultation. ABDOMEN: Soft. EXTREMITIES: Contracted x4 multiple ulcers and multiple ulcers on her back, infected. MEDICATIONS: She is on Ativan, Dakin Solution, dextrose, Merrem I.V., Santyl, Toradol, Tylenol, vancomycin. LABORATORY DATA: She has 16 white count, it was as high as 27, it is coming down slowly, but nicely. Hemoglobin is up to 10 after transfusion, hematocrit 34.6, platelets of 515. Sodium 146, potassium 4.4, BUN 39, creatinine is 1, and they are coming down very nicely. The GFR is 53, calcium is 8.3, total bili is 0.7. AST is 36, ALT is 23, alk phos 101. Total protein is 5.4. Kidney functions are definitely improving. She had E-coli in the sacrum, gram-positive cocci in the blood. She is being seen by Infectious Disease, Surgery, Neurology, Hematology. Continue with aggressive treatment and care. I have ordered a swallow evaluation. She is on liquid diet right now, I am hoping as the numbers improve, she will continue to improve. ASSESSMENT: Sally Nieves has got severe sepsis, infected decubitus ulcers, acute kidney injury, urinary tract infection. She had thrombocytosis dehydration. We will continue aggressive treatment and care. Dalton Meek DO ALETA
--- NOTE | 2019-03-30 05:47 | CARD ---
APPROVED REPORT Date of service: 03/29/2019 EXAM: Two-dimensional and M-mode echocardiogram with Doppler and color Doppler. INDICATION Infection:Rule out subacute bacterial endocarditis 2D DIMENSIONS Left Atrium (2D)3.5 (1.6-4.0cm)IVSd1.0 (0.7-1.1cm) LVDd4.1 (3.9-5.9cm)PWd1.2 (0.7-1.1cm) M-Mode DIMENSIONS Aortic Root2.80 (2.2-3.7cm)Aortic Cusp Exc.1.40 (1.5-2.0cm) Aortic Valve AoV Peak Aikfflve677.0cm/Rosalba Peak GR.7mmHg Mitral Valve MV E Svastsdp24.2cm/sMV A Snrvpovg97.3cm/sE/A ratio0.6 TDI E/Lateral E'0.0E/Medial E'0.0 Tricuspid Valve TR Peak Uteebjol767jo/sRAP [id number] Peak Gr.23mmHg [id number] LEFT VENTRICLE The left ventricle is normal size. There is normal left ventricular wall thickness. The left ventricular function is normal. The left ventricular ejection fraction is within the normal range. There is normal LV segmental wall motion. RIGHT VENTRICLE The right ventricle is normal size. The right ventricular systolic function is normal. ATRIA The left atrium size is normal. The right atrium size is normal. The interatrial septum is intact with no evidence for an atrial septal defect. AORTIC VALVE The aortic valve is moderately sclerotic. There is moderate aortic regurgitation. There is no aortic valvular stenosis. MITRAL VALVE The mitral valve is mildly thickened. Mitral regurgitation is moderate. TRICUSPID VALVE The tricuspid valve is normal in structure. There is mild tricuspid regurgitation. PULMONIC VALVE The pulmonary valve is normal in structure. GREAT VESSELS The aortic root is normal in size. The IVC is normal in size and collapses >50% with inspiration. PERICARDIAL EFFUSION There is no pleural effusion. There is no pericardial effusion. <Conclusion> Normal chamber size. Normal LV systolic function. Sclerotic aortic valve. Moderate AI. Moderate MR. Mild TR. No clear vegetation seen, but if clinical suspicion for endocarditis is high, consider [facility] imaging.
[2019-03-30 07:38] LABS: MEAN CELL VOLUME 82.4 fl (80.0-105.0); MEAN CORPUSCULAR HEMOGLOBIN 24.6 pg (25.0-35.0); MEAN CORPUSCULAR HGB CONC 29.8 g/dl (31.0-37.0); MEAN PLATELET VOLUME 8.3 fl (7.0-11.0); RBC 4.48 10^6/uL (3.5-6.1); WHITE BLOOD COUNT 13.5 10^3/uL (4.5-11.0)
[2019-03-30 08:05] LABS: ALB/GLOB RATIO 0.8 (1.1-1.8); ALBUMIN 2.6 g/dL (3.0-4.8); ALT/SGPT 12 U/L (7-56); AST/SGOT 25 U/L (14-36); BLOOD UREA NITROGEN 32 mg/dL (7-21); CALCIUM 8.3 mg/dL (8.4-10.5); GFR NON-AFRICAN AMERICAN 53
[2019-03-30] MEDS: Dakin's Topical 0.25%-Half Strength (480 ml) TOP SCH (09:19)
[2019-03-30] MEDS: Vancomycin 500mg in NS 500 MG/100 ML BAG IVPB SCH ×2 (09:19→22:30)
[2019-03-30] MEDS: Collagenase 250 Units/gm Ointment(30 gm) TOP SCH (09:20)
--- NOTE | 2019-03-30 12:17 | PN ---
DATE: 03/30/2019 SUBJECTIVE: The patient is in seen in bed, in no acute distress, nontoxic. PHYSICAL EXAMINATION: VITAL SIGNS: Temperature is 98, blood pressure is 130/60, respiratory rate of 18. HEENT: Unremarkable. NECK: Supple. LUNGS: Have decreased breath sounds. Heart: Normal S1, S2. ABDOMEN: Soft, nontender. LABORATORY EXAMINATION: Reveals a white count of 13,500, hemoglobin of 11 and platelets of 564. BUN of 32, creatinine of 1.0. Microbiology reveals the blood cultures are negative. Urine cultures are negative. The sacral cultures have Escherichia coli which is pansensitive and the blood cultures, one bottle of coag-negative staph which is oxacillin sensitive and there is a second Gram-negative ramírez in the wound and Gram-positive cocci. The patient's white count appears to be improving and the patient's creatinine is also improving it is down to 1. Review of systems reveals the patient to be on vancomycin and meropenem. ASSESSMENT AND PLAN: This is an 78-year-old female who was admitted with severe sepsis with multiple infected ulcers with a pansensitive Escherichia coli and a Gram-negative ramírez has not been identified and Gram-positive cocci which has not been identified and the coag-negative Staphylococcus bacteremia, currently on vancomycin, meropenem and waiting for further antibiotic identification and the patient had an echo that was read by Dr. Park, no clear vegetation was seen. We will follow with you. We will order a sed rate and C-reactive protein on to rule out underlying osteomyelitis. Carlton Lopez MD
[2019-03-30 20:19] LABS: BCR-ABL SOURCE WB; P190 BCR-ABL1 NOT DETECTED; P210 BCR-ABL1 NOT DETECTED
[2019-03-31] MEDS: Dextrose 5%/0.45% NS 1,000 ML IV SCH ×2 (03:00→20:32)
[2019-03-31 07:24] LABS: HEMOGLOBIN 10.5 g/dL (12.0-16.0); MEAN CORPUSCULAR HEMOGLOBIN 25.3 pg (25.0-35.0); MEAN CORPUSCULAR HGB CONC 31.3 g/dl (31.0-37.0); MEAN PLATELET VOLUME 8.1 fl (7.0-11.0); RBC 4.15 10^6/uL (3.5-6.1); RED CELL DISTRIBUTION WIDTH 17.9 % (11.5-14.5)
[2019-03-31 07:39] LABS: ALB/GLOB RATIO 0.8 (1.1-1.8); ALBUMIN 2.4 g/dL (3.0-4.8); ALT/SGPT 19 U/L (7-56); AST/SGOT 29 U/L (14-36); BLOOD UREA NITROGEN 26 mg/dL (7-21); GFR NON-AFRICAN AMERICAN > 60
--- NOTE | 2019-03-31 08:48 | PN ---
DATE: 03/30/2019 SUBJECTIVE: I saw her resting comfortably in bed. She is alert. She is looking at me. She answered a couple of questions yes and no. She tried to talk, but she is not yelling and screaming any more. She is coming I believe out of the sepsis. She has been seen by Oncology, Hematology, Infectious Disease, Surgery for very sacral ulcers, Neurology for change in mentation, and GI. PHYSICAL EXAMINATION: VITAL SIGNS: She has a 98.1 temperature, 60 pulse, 139/69 blood pressure, 17 respiratory rate, 90% O2 sat on 2 liters. HEENT: Head is atraumatic and normocephalic. GENERAL: She is looking at me today much better. Her mouth is a little bit dry, but she is trying to talk. HEART: Regular rate. LUNGS: Decreased breath sounds. ABDOMEN: Soft. EXTREMITIES: Contractive with a severe back ulcer and leg ulcers. MEDICATIONS: She is on Ativan, Dakin solution, Dextrose, Merrem IV, potassium replacement sample, Toradol, Tylenol, vancomycin IV. LABORATORY DATA: She has a 13.5 white count. The white count started at 27, it is down to 13.5; 11 hemoglobin; 36.9 hematocrit with a 564 platelets. She is definitely improving. She has a 147 sodium, potassium of 3.3 and replaced the potassium, BUN 32, creatinine was 1, which is still improving. Her kidney functions are getting back. The GFR is up to 53. Last blood sugar was 120. The calcium was 8.3, total bili was 0.5, AST was 25, ALT was 12, alk phos 125. C-reactive protein was high at 85.7 probably with a breakdown of her skin. ASSESSMENT AND PLAN: She also had a urinary tract infection. She had E. coli in the sacrum and coagulase-negative Staph in the blood. We are still doing a very aggressive treatment on her. We will continue with treatment and care. She [place]. Hopefully, we can get her there when it is okay with Infectious Disease, but she is definitely improving, which is fantastic. We will continue aggressive treatment and care. Karen Meek DO MTDGarrett
--- NOTE | 2019-03-31 10:10 | CP.PCM.PN ---
<AlicianathanmertColten - Last Filed: 03/31/19 10:07> Subjective - Date & Time of Evaluation Date of Evaluation: 03/31/19 Time of Evaluation: 08:15 - Subjective Subjective: PGY6 GI Fellow Progress Note Patient seen and examined bedside this morning. The patient is more alert and responding to questions asked in Danish. She is currently eating breakfast and tolerating well. Encouraged ongoing meal consumption. Ate well for lunch yeste rday too. Still crying and notes significant pain in legs/feet. No events overnight. 12 system ROS performed and negative except where stated Objective - Vital Signs/Intake and Output Vital Signs (last 24 hours): Temp Pulse Resp BP Pulse Ox 97.9 F 60 18 143/74 98 03/31/19 07:57 03/31/19 07:57 03/31/19 07:57 03/31/19 07:57 03/31/19 07:57 - Medications Medications: Current Medications Acetaminophen (Tylenol 325 Mg Supp) 325 mg RC Q6H PRN PRN Reason: Temperature Last Admin: 03/27/19 09:33 Dose: 325 mg Collagenase (Santyl) 0 gm TOP DAILY FRAKNLYN Last Admin: 03/30/19 09:20 Dose: 1 applic Vancomycin HCl (Vancomycin 500mg In Ns) 500 mg in 100 mls @ 200 mls/hr IVPB Q12 FRANKLYN; Protocol Last Admin: 03/30/19 22:30 Dose: 200 mls/hr Meropenem 250 mg/ Sodium (Chloride) 100 mls @ 100 mls/hr IVPB Q12H FRANKLYN; Protocol Stop: 04/04/19 14:01 Last Admin: 03/31/19 01:27 Dose: 100 mls/hr Dextrose/Sodium Chloride (Dextrose 5%/0.45% Ns 1000 Ml) 1,000 mls @ 60 mls/hr I V .[id number] FRANKLYN Last Admin: 03/31/19 03:00 Dose: 60 mls/hr Ketorolac Tromethamine (Toradol) 155 mg IVP Q6H PRN PRN Reason: Pain, moderate (4-7) Lorazepam (Ativan) 0.5 mg IVP Q6H PRN; Protocol PRN Reason: Anxiety Last Admin: 03/30/19 23:24 Dose: 0.5 mg Sodium Hypochlorite (Dakins Solution 0.25%) 0 ml TOP DAILY FRANKLYN Last Admin: 03/30/19 09:19 Dose: 1 applic - Labs Labs: 03/31/19 07:00 03/31/19 07:00 - Constitutional Appears: No Acute Distress, Chronically Ill - Eye Exam Eye Exam: EOMI, PERRL - ENT Exam ENT Exam: Mucous Membranes Moist - Respiratory Exam Respiratory Exam: Decreased Breath Sounds. absent: Rales, Rhonchi, Wheezes - Cardiovascular Exam Cardiovascular Exam: RRR, +S1, +S2 - GI/Abdominal Exam GI & Abdominal Exam: Soft, Normal Bowel Sounds. absent: Distended, Firm, Guarding, Rigid, Tenderness, Organomegaly - Extremities Exam Additional comments: B/L LE ulcerations - Neurological Exam Neurological Exam: Alert, Awake. absent: Oriented x3 - Psychiatric Exam Psychiatric exam: Anxious, Depressed - Skin Skin Exam: Dry, Warm Assessment and Plan - Assessment and Plan (Free Text) Assessment: Patient is an 78yo female with PMHx significant for dementia, bedbound with multiple decubitus ulcers, recommended to undergo amputation due to nonhealing foot wounds (refused by family), HTN, OA, CAD and GERD who was sent to the hospital for wound evaluation and increased lethargy -Iron deficiency anemia -Multiple decubitus ulcers -Prerenal azotemia, JOSÉ MANUEL; resolved -Dementia -CAD Plan: -Patient more alert s/p IVF resuscitation and antibiotic therapy for infected wounds -Patient tolerating diet at this time with assistance from hospital staff -Pain control per primary service -No episodes of over GI blood losses noted -H/H stable -No further recommendations at this time - please reconsult as needed <Claude Monk Y - Last Filed: 03/31/19 10:20> Objective - Vital Signs/Intake and Output Vital Signs (last 24 hours): Temp Pulse Resp BP Pulse Ox 97.9 F 60 18 143/74 98 03/31/19 07:57 03/31/19 07:57 03/31/19 07:57 03/31/19 07:57 03/31/19 07:57 - Medications Medications: Current Medications Acetaminophen (Tylenol 325 Mg Supp) 325 mg RC Q6H PRN PRN Reason: Temperature Last Admin: 03/27/19 09:33 Dose: 325 mg Collagenase (Santyl) 0 gm TOP DAILY FRANKLYN Last Admin: 03/30/19 09:20 Dose: 1 applic Vancomycin HCl (Vancomycin 500mg In Ns) 500 mg in 100 mls @ 200 mls/hr IVPB Q12 FRANKLYN; Protocol Last Admin: 03/30/19 22:30 Dose: 200 mls/hr Meropenem 250 mg/ Sodium (Chloride) 100 mls @ 100 mls/hr IVPB Q12H FRANKLYN; Protoco l Stop: 04/04/19 14:01 Last Admin: 03/31/19 01:27 Dose: 100 mls/hr Dextrose/Sodium Chloride (Dextrose 5%/0.45% Ns 1000 Ml) 1,000 mls @ 60 mls/hr IV .[id number] FRANKLYN Last Admin: 03/31/19 03:00 Dose: 60 mls/hr Ketorolac Tromethamine (Toradol) 155 mg IVP Q6H PRN PRN Reason: Pain, moderate (4-7) Lorazepam (Ativan) 0.5 mg IVP Q6H PRN; Protocol PRN Reason: Anxiety Last Admin: 03/30/19 23:24 Dose: 0.5 mg Sodium Hypochlorite (Dakins Solution 0.25%) 0 ml TOP DAILY FRANKLYN Last Admin: 03/30/19 09:19 Dose: 1 applic - Labs Labs: 03/31/19 07:00 03/31/19 07:00 Attending/Attestation - Attestation I have fully participated in the care of the patient.: Yes I have reviewed all pertinent clinical information, including history, physical exam and plan: Yes Notes (Text): 03/31/19 10:19 Dementia Sacral decubitus ulcers, wound infection HTN OA Anemia - Diet as tolerated - H/H stable, continue to monitor. No features of overt GI bleeding noted. - No additional planned GI interventions at this time, will sign off case. Please reconsult as necessary, thank you.
[2019-03-31] MEDS: Vancomycin 500mg in NS 500 MG/100 ML BAG IVPB SCH (11:36)
--- NOTE | 2019-03-31 12:10 | CP.PCM.PCO ---
Additional Comments - Additional Comments Additional Comments: wound management as per surgery, continue antibiotics as per ID
--- NOTE | 2019-03-31 12:49 | PN ---
DATE: 03/31/2019 SUBJECTIVE: She is more alert today. She is trying to tell me something, I think she is either in pain or her mouth is dry. She is more alert, not screaming anymore. MEDICATIONS: She is on Ativan, Dakin solution, Merrem IV, Santyl, Toradol, Tylenol and vancomycin IV. PHYSICAL EXAMINATION: VITAL SIGNS: She has a 97.9 temperature, 60 pulse, 143/74 blood pressure, 18 respiratory rate, 98% O2 saturation on 2 liters. HEENT: Head is atraumatic and normocephalic. Her mouth is sort of dry, it has been worse She is trying to communicate, not screaming. HEART: Regular rate. LUNGS: Decreased breath sounds. ABDOMEN: Soft. EXTREMITIES: Contracted. SKIN: She has skin ulcers. LABORATORY DATA: She has a 10 white count, when she came in, the white count was 27, it is down to 10. Hemoglobin is 10.5, hematocrit 33.6, platelets are 520, definitely improved with the infection. She has a sodium 148, potassium 3.4, I will give her some potassium, BUN is 26, creatinine is 0.9, also continues to improve, doing great. GFR is greater than 60, sugar is 89, calcium is 8, total bilirubin is 0.3, AST is 29, ALT is 19, alkaline phosphatase 116, total protein is 5.5. She has a very bad UTI with Escherichia coli and coagulase-negative Staphylococcus in the blood as per Infectious Disease. Continue IV antibiotics. I am trying to find out what she is telling me, I discussed this with the nurse to give her a shot of pain medication Toradol and take care of her mouth with mouth care, multiple infections and she is definitely responding to antibiotics. We will continue rest of treatment and care on Sally Nieves. Dalton Meek DO MTDD
--- NOTE | 2019-03-31 19:53 | PN ---
DATE: 03/31/2019 PHYSICAL EXAMINATION VITAL SIGNS: On exam temperature is 98, blood pressure is 112/70 and respiratory rate 16. HEENT: Unremarkable. NECK: Supple. LUNGS: Have decreased breath sounds. HEART: Normal S1 and S2. ABDOMEN: Soft and nontender. LABORATORY EXAMINATION: Reveals a white count of 10 and sed rate is 72 and chemistries reveals a BUN of 26 and creatinine of 0.9. Urinalysis is noted and microbiology is noted with coag-negative staph in one bottle. ASSESSMENT AND PLAN: This is an 78-year-old female admitted with severe sepsis, multiple infected ulcers and pansensitive Enterococcus coli and Gram-negative ramírez and Gram-positive cocci, coag-negative staphylococcus in one bottle. The Enterococcus coli, Proteus and Staphylococcus aureus relatively sensitive organisms. Review of orders reveals the patient is on vancomycin. We will discontinue the vancomycin since it is sensitive staphylococcus aureus. The patient is also on meropenem, we will also discontinue that and start the patient on 2 g of ceftriaxone daily. We will follow closely with you. Carlton Lopez MD
[2019-03-31] MEDS: cefTRIAXone 2 GM IN NS 2 GM/100 ML BAG IVPB SCH (20:32)
[2019-04-01 07:04] LABS: HEMOGLOBIN 10.4 g/dL (12.0-16.0); MEAN CELL VOLUME 80.9 fl (80.0-105.0); MEAN CORPUSCULAR HEMOGLOBIN 24.2 pg (25.0-35.0); MEAN PLATELET VOLUME 8.2 fl (7.0-11.0); RBC 4.29 10^6/uL (3.5-6.1); WHITE BLOOD COUNT 10.7 10^3/uL (4.5-11.0)
[2019-04-01 07:20] LABS: ALB/GLOB RATIO 0.8 (1.1-1.8); ALBUMIN 2.3 g/dL (3.0-4.8); ALT/SGPT 13 U/L (7-56); AST/SGOT 43 U/L (14-36); BLOOD UREA NITROGEN 20 mg/dL (7-21); GFR NON-AFRICAN AMERICAN > 60
[2019-04-01 08:37] VITALS: BP 165/84; PULSE 66; RESP 20; TEMP 97.1; O2SAT 99
[2019-04-01] MEDS: cefTRIAXone 2 GM IN NS 2 GM/100 ML BAG IVPB SCH (09:27)
--- NOTE | 2019-04-01 11:19 | PN ---
DATE: 04/01/2019 SUBJECTIVE: She is resting comfortably in bed. She is alert. She is talking a little bit better, calm, decreased pain. She has multiple issues from severe sepsis, infected decubitus ulcer, acute kidney injury, UTI, little dehydration. She has been seen by numerous doctors, Infectious Disease, GI, Surgery, Neuro. She was very infected when she came in with severe sepsis, multiple infected ulcers, pansensitive, enterococcus coli, gram-negative rods, and gram-positive cocci, coagulase negative Staphylococcus. She was now just recently changed to Rocephin 2 g IV. PHYSICAL EXAMINATION: VITAL SIGNS: She has a 97.1 temp, 66 pulse, 155/84 blood pressure, 20 respiratory rate, 99% O2 sat. HEENT: Head is atraumatic, normocephalic. She is talking. She is looking. She smiled. HEART: Regular rate. LUNGS: Decreased breath sounds but clear. ABDOMEN: Soft, nontender. EXTREMITIES: Contracted. She moves her arms. She had ulcers on her legs and the back, infected. I do think she is starting to improve some from when she came in to now, it is a night and day difference. IV antibiotics, we just changed the antibiotics to Rocephin 2 g. LABORATORY DATA: She has 146 sodium, potassium 3.1. I gave her 2 riders of potassium. BUN 20, creatinine 0.7. GFR is greater than 60, sugar is 85, calcium was 8, magnesium 1.9. Total bili was 0.2. AST is 43, ALT is 13, alk phos is 119, total protein is 5.3. White count is staying down at 10.7, hemoglobin 10.4, hematocrit 34.7, platelets are 474. ASSESSMENT AND PLAN: Improved greatly. We will continue with aggressive treatment and care. She is now on new antibiotics. Dalton Meek DO ALETA
[2019-04-01] MEDS: Dakin's Topical 0.25%-Half Strength (480 ml) TOP SCH (13:14)
[2019-04-01] MEDS: Collagenase 250 Units/gm Ointment(30 gm) TOP SCH (13:15)
--- NOTE | 2019-04-01 14:11 | PN ---
DATE: 04/01/2019 SUBJECTIVE: The patient seen earlier today in 368, bed 2. No fevers. No chills. No nausea. PHYSICAL EXAMINATION: GENERAL: Temperature is 97, blood pressure is 160/70, respiratory rate 16. HEENT: Unremarkable. NECK: Supple. LUNGS: Have decreased breath sounds. HEART: Normal S1 and S2. ABDOMEN: Soft, nontender. LABORATORY EXAMINATION: White count is improved and hemoglobin of 10, BUN of 20, creatinine of 0.7. Microbiology reveals E. coli, Proteus and Staph aureus, which is pansensitive in the sacrum. The patient did have a coag-negative Staph in the blood, 1 bottle added too. The patient does not have intravascular catheters and. ASSESSMENT AND PLAN: An 78-year-old female with severe sepsis with multiple infected ulcers pansensitive Escherichia coli from the wound. We will discontinue the ceftriaxone and change to p.o. Augmentin 875 p.o. b.i.d. x7 days. Carlton Lopez MD
[2019-04-01] MEDS ORDERED: Amoxicillin-Clav 875-125 mg Tab PO SCH (22:00)
== END 2019-04-01 19:26 | DRG 871 ==
LOC: ED 17:17 → ERH 20:17 → 3RNO 03-27 00:34
PROVIDERS: ADMIT Family Medicine; ATTEND Family Medicine
PROC: 30233N1 Transfusion of Nonautologous Red Blood Cells into Peripheral Vein, Percutaneous Approach (ICD-10-PCS; principal; 2019-03-28)
DX: A41.1 Sepsis due to other specified staphylococcus (principal); L89.104 Pressure ulcer of unspecified part of back, stage 4; L89.154 Pressure ulcer of sacral region, stage 4; R65.21 Severe sepsis with septic shock; N39.0 Urinary tract infection, site not specified; N17.9 Acute kidney failure, unspecified; L97.329 Non-pressure chronic ulcer of left ankle with unspecified severity; L02.212 Cutaneous abscess of back [any part, except buttock and flank]; L89.512 Pressure ulcer of right ankle, stage 2; Z74.01 Bed confinement status; F03.90 Unspecified dementia, unspecified severity, without behavioral disturbance, psychotic disturbance, mood disturbance, and anxiety; B96.20 Unspecified Escherichia coli [E. coli] as the cause of diseases classified elsewhere; D50.9 Iron deficiency anemia, unspecified; R62.7 Adult failure to thrive; I10 Essential (primary) hypertension; I25.10 Atherosclerotic heart disease of native coronary artery without angina pectoris; E86.0 Dehydration; K21.9 Gastro-esophageal reflux disease without esophagitis; T68.XXXA Hypothermia, initial encounter; E86.9 Volume depletion, unspecified; Z86.73 Personal history of transient ischemic attack (TIA), and cerebral infarction without residual deficits; Z91.81 History of falling